=== PATIENT | male | born 1960 | race African-American/Black ===

== ENCOUNTER 2018-04-25 00:22 | Inpatient (IN) | payer MEDICARE, MEDICAID ==
[~2018-04-25] VITALS: Ht 180.3 cm; Wt 113.4 kg
--- NOTE | 2018-04-25 00:27 | ER Report ---
History and Physical Time Seen By MD: 00:27 HPI/ROS CHIEF COMPLAINT: Fever HISTORY OF PRESENT ILLNESS: Patient is a 58-year-old male who presents to the emergency department for evaluation of fever, cough bodyaches. Patient recently had surgery to his left foot by Dr. Dimas on April 21. This procedure was done at [facility]. Surgery apparently went well however patient did have some issues with recovery from anesthesia. He had elevated blood pressures stating that they were in the 200s systolic range and severe nausea. This was monitored and treated and apparently the patient was eventually discharged to home. evening around 5 PM the patient began having difficulty with speech, left-sided facial droop left facial and arm numbness and some weakness. These episodes would occur in the last for a few min utes and then completely resolve. This reason patient presented to [facility] for further evaluation. Patient and spouse stated he had multiple episodes of facial droop, left facial numbness left arm numbness and weakness over the course of a few hours and one was witnessed by the telestroke neurologist. The patient states they did a workup which did include blood work and patient was reported to have an elevated white blood cell count., Influenza screen which was reported to be negative. CT scan of the head was "negative". The patient was subsequently admitted for diagnosis of TIA. The following morning he had an MRI of the brain which was also reported to be "negative". During his hospital stay on Friday the patient apparently spiked a fever to 103 which did not respond to Tylenol. The admitting team apparently wanted to give ibuprofen but he refused stating that the neurologist from [facility] said "absolutely no ibuprofen because of the TIA." They then pparently used ice packs instead to try to lower the fever and the patient feels this is the reason he became "sick". He was scheduled to have a cardiac echo done however the patient became upset that "the doctors were not doing anything for him" and he left against medical advice without signing an AMA form. Because the patient's symptoms have continued he presents to the emergency department for further evaluation. Of note the patient was on IV Zithromax during his hospital admission. It was unclear to the patient what they were treating. Currently the patient states he's having headaches bodyaches, fever, nonproductive cough. He denies chills. He denies any back pain. He denies pain to his surgical site. He does report chest pain and palpitations which she also apparently had at [facility] and apparently his cardiac workup was "negative". He denies abdominal pain but reports nausea and a sensation of needing to vomit without actually vomiting. He also reports left-sided facial pressure. REVIEW OF SYSTEMS: Constitutional: Fever, no chills Eyes: No discharge. ENT: No sore throat. Sided facial pressure Cardiovascular: Chest pain/burning, palpitations Respiratory: Nonproductive cough increased work of breathing Gastrointestinal: No abdominal pain, no vomiting. Positive for nausea Genitourinary: No hematuria. Musculoskeletal: No back pain. Surgical site left foot negative for pain Skin: No rashes. Neurological: Headache Allergies: Coded Allergies: codeine (Verified Allergy, Intermediate, SWELLING, 04/25/18) morphine (Verified Allergy, Intermediate, SWELLING, 04/25/18) Past Medical/Surgical History Recent left foot surgery. History of reactive airways disease, denies prior history of stroke although was diagnosed with TIA on 04/23/2018. No cardiac history. Constitutional Vital Sign - Last 24 Hours 04/25/18 04/25/18 04/25/18 04/25/18 00:27 00:27 00:30 00:30 Temp 103.3 Pulse 119 Resp 17 B/P (MAP) 169/93 169/93 (118) 156/97 (116) Pulse Ox 76 O2 Delivery Room Air O2 Flow Rate 4.0 04/25/18 04/25/18 04/25/18 04/25/18 00:37 00:45 01:00 01:07 Pulse 115 110 Resp 22 34 B/P (MAP) 159/94 (115) 152/93 (112) Pulse Ox 96 94 04/25/18 04/25/18 04/25/18 04/25/18 01:18 01:18 01:22 01:22 Pulse 110 108 108 Resp 16 16 11 Pulse Ox 95 O2 Delivery Nasal Cannula O2 Flow Rate 2.0 04/25/18 04/25/18 04/25/18 04/25/18 01:37 01:42 02:00 02:12 Pulse 111 111 108 Resp 31 12 B/P (MAP) 140/80 (100) Pulse Ox 93 95 104/25/18 04/25/18 04/25/18 02:30 02:30 02:30 02:34 Temp 101.8 Pulse 108 108 Resp 20 16 B/P (MAP) 133/76 (95) Pulse Ox 93 O2 Delivery Nasal Cannula O2 Flow Rate 3.0 Physical Exam General/Constitutional: Patient is awake, alert, nontoxic and in no acute respiratory distress. Normal speech Head: Normocephalic and atraumatic. Eyes: Conjunctival clear, Pupils are equal and reactive to light. Extraocular muscles are intact and symmetrical. Sclera are clear and anicteric. Ears:External canals are clear. Tympanic membranes are clear with normal landmarks and light reflex. Nares: No rhinorrhea or bleeding. Turbinates are pink and moist. Oropharyngeal: Mucous membranes are moist. There is no pharyngeal erythema or exudate. There are no palatal petechiae. Uvula is midline and symmetrical. Neck: Supple, no adenopathy. Cardiovascular: Heart is tachycardic with regular rate and rhythm Pulmonary: Lungs are noted for bilateral wheezing right greater than left. Abdomen: Soft, nontender, no guarding or peritoneal signs. Extremities: Patient with surgical incision to left foot. Dressing and splint are removed for evaluation. Incision appears clean dry and intact there is no surrounding erythema no evidence of fluctuant mass or dehiscence. Neuro: Alert and oriented X3, Cranial nerves 2 thru 12 are intact and symmetrical. Gross motor strength symmetrical and intact. No dysarthria no aphasia noted Skin: No rashes, skin is hot to touch. Medical Decision Making Data Points Result Diagram: 04/25/18 0032 04/25/18 0032 Laboratory Hematology Test 04/25/18 00:32 04/25/18 01:05 04/25/18 01:30 Red Blood Count 5.94 M/uL (4.00-5.60) Mean Corpuscular Volume 64.3 fL (80.0-96.0) Mean Corpuscular Hemoglobin 19.2 pg (26.0-33.0) Mean Corpuscular Hemoglobin Concent 29.9 g/dL (32.0-36.0) Red Cell Distribution Width 22.6 % (11.5-14.5) Mean Platelet Volume 8.9 fL (7.2-11.1) Neutrophils (%) (Auto) 79.8 % (39.4-72.5) Lymphocytes (%) (Auto) 7.9 % (17.6-49.6) Monocytes (%) (Auto) 11.4 % (4.1-12.4) Eosinophils (%) (Auto) 0.3 % (0.4-6.7) Basophils (%) (Auto) 0.6 % (0.3-1.4) Nucleated RBC Relative Count (auto) 0.3 /100WBC Neutrophils # (Auto) 8.5 K/uL (2.0-7.4) Lymphocytes # (Auto) 0.8 K/uL (1.3-3.6) Monocytes # (Auto) 1.2 K/uL (0.3-1.0) Eosinophils # (Auto) 0.0 K/uL (0.0-0.5) Basophils # (Auto) 0.1 K/uL (0.0-0.1) Nucleated RBC Absolute Count (auto) 0.03 K/uL Peripheral Blood Smear Yes Y/N Sodium Level 137 mmol/L (137-145) Potassium Level 3.7 mmol/L (3.5-5.0) Chloride Level 102 mmol/L (98-107) Carbon Dioxide Level 25 mmol/L (22-30) Blood Urea Nitrogen 16 mg/dl (9-21) Creatinine 1.30 mg/dl (0.66-1.25) Glomerular Filtration Rate Calc 56.7 Random Glucose 114 mg/dl (75-110) Lactate 2.0 mmol/L (0.7-2.1) Calcium Level 9.1 mg/dl (8.4-10.2) Total Bilirubin 0.6 mg/dl (0.2-1.3) Aspartate Amino Transf (AST/SGOT) 37 U/L (0-35) Alanine Aminotransferase (ALT/SGPT) 41 U/L (0-56) Alkaline Phosphatase 81 U/L (0-126) Troponin I 0.028 ng/ml Total Protein 7.6 g/dl (6.3-8.2) Albumin 3.9 g/dl (3.5-5.0) Influenza Virus Type A (PCR) Positive (NEGATIVE) Influenza Virus Type B (PCR) Negative (NEGATIVE) Urine Color Yellow Urine Clarity Clear Urine pH 5.0 pH (4.8-9.5) Urine Specific [place] 1.024 Urine Protein Negative mg/dL (NEGATIVE) Urine Glucose (UA) Negative mg/dL (NEGATIVE) Urine Ketones Negative mg/dL (NEGATIVE) Urine Blood Negative (NEGATIVE) Urine Nitrite Negative (NEGATIVE) Urine Bilirubin Negative (NEGATIVE) Urine Urobilinogen Negative mg/dL (0.2-1.9) Urine Leukocyte Esterase Negative (NEGATIVE) Urine RBC <1 /HPF (0-2/HPF) Urine WBC 1 /HPF (0-5/HPF) Urine Squamous Epithelial Cells None /LPF (</=FEW) Urine Bacteria Negative /HPF (NONE-FEW) Urine Mucus None /HPF (NONE-FEW) Chemistry Test 04/25/18 00:32 04/25/18 01:05 04/25/18 01:30 White Blood Count 10.7 k/uL (4.5-11.0) Red Blood Count 5.94 M/uL (4.00-5.60) Hemoglobin 11.4 g/dL (14.0-18.0) Hematocrit 38.2 % (42.0-52.0) Mean Corpuscular Volume 64.3 fL (80.0-96.0) Mean Corpuscular Hemoglobin 19.2 pg (26.0-33.0) Mean Corpuscular Hemoglobin Concent 29.9 g/dL (32.0-36.0) Red Cell Distribution Width 22.6 % (11.5-14.5) Platelet Count 275 K/uL (150-450) Mean Platelet Volume 8.9 fL (7.2-11.1) Neutrophils (%) (Auto) 79.8 % (39.4-72.5) Lymphocytes (%) (Auto) 7.9 % (17.6-49.6) Monocytes (%) (Auto) 11.4 % (4.1-12.4) Eosinophils (%) (Auto) 0.3 % (0.4-6.7) Basophils (%) (Auto) 0.6 % (0.3-1.4) Nucleated RBC Relative Count (auto) 0.3 /100WBC Neutrophils # (Auto) 8.5 K/uL (2.0-7.4) Lymphocytes # (Auto) 0.8 K/uL (1.3-3.6) Monocytes # (Auto) 1.2 K/uL (0.3-1.0) Eosinophils # (Auto) 0.0 K/uL (0.0-0.5) Basophils # (Auto) 0.1 K/uL (0.0-0.1) Nucleated RBC Absolute Count (auto) 0.03 K/uL Peripheral Blood Smear Yes Y/N Glomerular Filtration Rate Calc 56.7 Lactate 2.0 mmol/L (0.7-2.1) Calcium Level 9.1 mg/dl (8.4-10.2) Total Bilirubin 0.6 mg/dl (0.2-1.3) Aspartate Amino Transf (AST/SGOT) 37 U/L (0-35) Alanine Aminotransferase (ALT/SGPT) 41 U/L (0-56) Alkaline Phosphatase 81 U/L (0-126) Troponin I 0.028 ng/ml Total Protein 7.6 g/dl (6.3-8.2) Albumin 3.9 g/dl (3.5-5.0) Influenza Virus Type A (PCR) Positive (NEGATIVE) Influenza Virus Type B (PCR) Negative (NEGATIVE) Urine Color Yellow Urine Clarity Clear Urine pH 5.0 pH (4.8-9.5) Urine Specific [place] 1.024 Urine Protein Negative mg/dL (NEGATIVE) Urine Glucose (UA) Negative mg/dL (NEGATIVE) Urine Ketones Negative mg/dL (NEGATIVE) Urine Blood Negative (NEGATIVE) Urine Nitrite Negative (NEGATIVE) Urine Bilirubin Negative (NEGATIVE) Urine Urobilinogen Negative mg/dL (0.2-1.9) Urine Leukocyte Esterase Negative (NEGATIVE) Urine RBC <1 /HPF (0-2/HPF) Urine WBC 1 /HPF (0-5/HPF) Urine Squamous Epithelial Cells None /LPF (</=FEW) Urine Bacteria Negative /HPF (NONE-FEW) Urine Mucus None /HPF (NONE-FEW) Urinalysis Test 04/25/18 01:30 Urine Color Yellow Urine Clarity Clear Urine pH 5.0 pH (4.8-9.5) Urine Specific [place] 1.024 Urine Protein Negative mg/dL (NEGATIVE) Urine Glucose (UA) Negative mg/dL (NEGATIVE) Urine Ketones Negative mg/dL (NEGATIVE) Urine Blood Negative (NEGATIVE) Urine Nitrite Negative (NEGATIVE) Urine Bilirubin Negative (NEGATIVE) Urine Urobilinogen Negative mg/dL (0.2-1.9) Urine Leukocyte Esterase Negative (NEGATIVE) Urine RBC <1 /HPF (0-2/HPF) Urine WBC 1 /HPF (0-5/HPF) Urine Squamous Epithelial Cells None /LPF (</=FEW) Urine Bacteria Negative /HPF (NONE-FEW) Urine Mucus None /HPF (NONE-FEW) EKG/Imaging EKG Interpretation EKG shows sinus tachycardia with a ventricular rate of 112 bpm. There are no significant ST segment or T-wave abnormalities. There is no prior EKG to compare with. Monitor Interpretation: Sinus Tachycardia Imaging FACILITY: [facility] [place] PATIENT NAME: Michael Ramirez : 1960 MR: [id number] V: [id number] EXAM DATE: ORDERING PHYSICIAN: SUHAS HA TECHNOLOGIST: Location: Patient: Michael Ramirez : 1960 Visit/Account:[id number] Date of Sevice: 04/25/[address] scan without contrast HISTORY: Fever, nausea, recent TIA COMPARISONS: None TECHNIQUE: Non-contrast head CT was performed with sagittal and coronal reformations. One of the following dose optimization techniques was utilized in the performance of this exam: automated exposure control; adjustment of the mA and/or kV according to patient size; or use of iterative reconstruction technique. Specific details can be referenced in the facility's radiology CT exam operational policy. FINDINGS: There is no intracranial hemorrhage, hydrocephalus or midline shift. The basal cisterns, corrales-white differentiation, and convexity sulci are maintained. Normal orbital soft tissues. Equivocal tiny chronic right cerebellar infarct, axial image 21. Clear mastoid air cells. Mild maxillary sinus and ethmoid sinus mucosal thickening. No osseous abnormality. IMPRESSION: No acute intracranial abnormality. Equivocal tiny chronic right cerebellar infarct. Report Dictated By: Darien Baltazar MD at 04/25/2018 2:22 AM Report E-Signed By: Darien Baltazar MD at 04/25/2018 2:25 AM WSN:[id number] FACILITY: [facility] [place] PATIENT NAME: Michael Ramirez : 1960 MR: [id number] V: [id number] EXAM DATE: ORDERING PHYSICIAN: SUHAS HA TECHNOLOGIST: Location: Patient: Michael Ramirez : 1960 Visit/Account:[id number] Date of Sevice: 04/25/2018 EXAMINATION: CT of the Paranasal Sinuses HISTORY: Fever TECHNIQUE: CT was performed through the paranasal sinuses without intravenous contrast administration. Coronal and sagittal reformatted images were generated. One of the following dose optimization techniques was utilized in the performance of this exam: automated exposure control; adjustment of the mA and/or kV according to patient size; or use of iterative reconstruction technique. Specific details can be referenced in the facility's radiology CT exam operational policy. COMPARISON: None. FINDINGS: Clear mastoid air cells and middle ear cavities. Mild bilateral maxillary sinus and ethmoid sinus mucosal thickening. Trace right maxillary sinus secretions. Otherwise clear sinuses. No nasal cavity polyp. Mild leftward nasal septum deviation. Infundibula are partially effaced by mucosal thickening. Small left nasal septum spur contacts the mucosa of the left inferior turbinate. Normal temporomandibular joints. The visible extracranial and intracranial structures are normal. IMPRESSION: Mild bilateral maxillary sinus and ethmoid sinus mucosal thickening and trace right maxillary sinus secretions. Developing acute sinusitis cannot be entirely excluded. Mild leftward nasal septum deviation. Small nasal septum spur contacts the mucosa of the left inferior turbinate. Report Dictated By: Darien Baltazar MD at 04/25/2018 2:25 AM Report E-Signed By: Darien Baltazar MD at 04/25/2018 2:29 AM WSN:[id number] FACILITY: [facility] [place] PATIENT NAME: Michael Ramirez : 1960 MR: [id number] V: [id number] EXAM DATE: ORDERING PHYSICIAN: SUHAS HA TECHNOLOGIST: Location: Patient: Michael Ramirez : 1960 Visit/Account:[id number] Date of Sevice: 04/25/2018 CHEST: Indication: Fever. Technique: Frontal and lateral views were obtained. Comparison: None available. Skeletal and soft tissue structures: There are mild degenerative changes in the spine. No acute deformity. Heart and mediastinum: Within normal limits. Lung lozada: Well-expanded. No focal parenchymal opacity or consolidation. Pleural spaces: Unremarkable. Impression: No acute process. Report Dictated By: Johnny Brock MD at 04/25/2018 2:15 AM Report E-Signed By: Johnny Brock MD at 04/25/2018 2:17 AM WSN:[id number] ED Course/Re-evaluation Clinical Indication for ER IV: Hydration, IV Access ED Course Patient with febrile illness. Physical exam shows low oxygen saturation on room air at 76%, patient with audible wheezing on exam. Suspicion for pneumonia is high. We will repeat a cardiac workup we will repeat a noncontrast CT of the head along with the sinuses secondary to left maxillary facial pain. EKG shows tachycardia without any significant ischemic changes. We will perform sepsis workup, we will give her 30 mL/kg bolus of normal saline. We will give oral Tylenol. We'll give DuoNeb breathing treatment. Decision to Disposition Date: Apr 25, 2018 Decision to Disposition Time: 02:51 Depart Departure Latest Vital Signs Vital Signs Date Time Temp Pulse Resp B/P (MAP) Pulse Ox O2 Delivery O2 Flow Rate FiO2 04/25/18 02:34 108 16 04/25/18 02:30 101.8 133/76 (95) 04/25/18 02:30 93 Nasal Cannula 3.0 Impression: Primary Impression: Influenza A Additional Impressions: Hypoxia Asthma Condition: Improved Disposition: Admitted from ER (to dr Neumann) Problem Qualifiers Additional Impressions: Asthma Asthma severity: unspecified severity Asthma persistence: unspecified Asthma complication type: with acute exacerbation Qualified Codes: J45.901 - Unspecified asthma with (acute) exacerbation SUHAS HA MD Apr 25, 2018 00:27
[2018-04-25] MEDS ORDERED: ACETAMINOPHEN 325 MG TAB PO ONE (00:30)
[2018-04-25] MEDS: NS 0.9% IV ONE (00:45)
[2018-04-25] MEDS ORDERED: ALBUTEROL/IPRATROPIUM 3 ML NEB NEB ONE ×2 (01:05→02:20)
[2018-04-25] MEDS ORDERED: ONDANSETRON 4 MG/2 ML VIAL IVP ONE (01:05)
[2018-04-25 01:10] LABS: PLATELET COUNT, AUTOMATED 275 K/uL (150-450)
--- NOTE | 2018-04-25 01:31 | EKG ---
FACILITY: [facility] PATIENT NAME: ABHINAV MENDEZ : [id number] MR: [id number] V: [id number] EXAM DATE: ORDERING PHYSICIAN: SUHAS HA TECHNOLOGIST: NANDA Test Reason : FEVER Blood Pressure : / mmHG Vent. Rate : 112 BPM Atrial Rate : 112 BPM P-R Int : 136 ms QRS Dur : 090 ms QT Int : 316 ms P-R-T Axes : 050 -02 060 degrees QTc Int : 431 ms Sinus tachycardia R wave progression consistent with an old ant/sep SD vs lead placement No previous ECGs available Confirmed by ABEL NARAYAN ([id number]) on 04/25/2018 3:58:37 AM Referred By: Confirmed By:ABEL NARAYAN
[2018-04-25] MEDS ORDERED: OSELTAMIVIR PHOS 75 MG CAP PO ONE (02:15)
--- NOTE | 2018-04-25 02:21 | RADIOLOGY IMAGING REPORT ---
FACILITY: [facility] PATIENT NAME: Michael Ramirez : 1960 MR: [id number] V: [id number] EXAM DATE: ORDERING PHYSICIAN: SUHAS HA TECHNOLOGIST: Location: [facility] Patient: Michael Ramirez : 1960 Visit/Account:[id number] Date of Sevice: 04/25/2018 CHEST: Indication: Fever. Technique: Frontal and lateral views were obtained. Comparison: None available. Skeletal and soft tissue structures: There are mild degenerative changes in the spine. No acute defor mity. Heart and mediastinum: Within normal limits. Lung lozada: Well-expanded. No focal parenchymal opacity or consolidation. Pleural spaces: Unremarkable. Impression: No acute process. Report Dictated By: Johnny Brock MD at 04/25/2018 2:15 AM Report E-Signed By: Johnny Brock MD at 04/25/2018 2:17 AM WSN:[id number]
--- NOTE | 2018-04-25 02:31 | RADIOLOGY IMAGING REPORT ---
FACILITY: [facility] [place] PATIENT NAME: Michael Ramirez : 1960 MR: [id number] V: [id number] EXAM DATE: ORDERING PHYSICIAN: SUHAS HA TECHNOLOGIST: Location: [facility] [place], [place] Patient: Michael Ramirez : 1960 Visit/Account:[id number] Date of Sevice: 04/25/[address] scan without contrast HISTORY: Fever, nausea, recent TIA COMPARISONS: None TECHNIQUE: Non-contrast head CT was performed with sagittal and coronal reformations. One of the following dose optimization techniques was utilized in the performance of this exam: autom ated exposure control; adjustment of the mA and/or kV according to patient size; or use of iterative reconstruction technique. Specific details can be referenced in the facility's radiology CT exam ope rational policy. FINDINGS: There is no intracranial hemorrhage, hydrocephalus or midline shift. The basal cisterns, corrales-white differentiation, and convexity sulci are maintained. Normal orbital soft tissues. Equivocal tiny chrome polisher brian right cerebellar infarct, axial image 21. Clear mastoid air cells. Mild maxillary sinus and ethmoid sinus mucosal thickening. No osseous abnorm ality. IMPRESSION: No acute intracranial abnormality. Equivocal tiny chronic right cerebellar infarct. Report Dictated By: Darien Baltazar MD at 04/25/2018 2:22 AM Report E-Signed By: Darien Baltazar MD at 04/25/2018 2:25 AM WSN:[id number]
--- NOTE | 2018-04-25 02:33 | RADIOLOGY IMAGING REPORT ---
FACILITY: [facility] [place] PATIENT NAME: Michael Ramirez : 1960 MR: [id number] V: [id number] EXAM DATE: ORDERING PHYSICIAN: SUHAS HA TECHNOLOGIST: Location: [facility] [place] Patient: Michael Ramirez : 1960 Visit/Account:[id number] Date of Sevice: 04/25/2018 EXAMINATION: CT of the Paranasal Sinuses HISTORY: Fever TECHNIQUE: CT was performed through the paranasal sinuses without intravenous contrast administratio n. Coronal and sagittal reformatted images were generated. One of the following dose optimization techniques was utilized in the performance of this exam: autom ated exposure control; adjustment of the mA and/or kV according to patient size; or use of iterative reconstruction technique. Specific details can be referenced in the facility's radiology CT exam ope rational policy. COMPARISON: None. FINDINGS: Clear mastoid air cells and middle ear cavities. Mild bilateral maxillary sinus and ethmoid sinus muc osal thickening. Trace right maxillary sinus secretions. Otherwise clear sinuses. No nasal cavity randal yp. Mild leftward nasal septum deviation. Infundibula are partially effaced by mucosal thickening. Sm all left nasal septum spur contacts the mucosa of the left inferior turbinate. Normal temporomandibul ar joints. The visible extracranial and intracranial structures are normal. IMPRESSION: Mild bilateral maxillary sinus and ethmoid sinus mucosal thickening and trace right maxillary sinus s ecretions. Developing acute sinusitis cannot be entirely excluded. Mild leftward nasal septum deviation. Small nasal septum spur contacts the mucosa of the left inferio r turbinate. Report Dictated By: Darien Baltazar MD at 04/25/2018 2:25 AM Report E-Signed By: Darien Baltazar MD at 04/25/2018 2:29 AM WSN:[id number]
[2018-04-25] MEDS ORDERED: ALBUTEROL 2.5 MG/3 ML NEB NEB PRN (03:35)
[2018-04-25] MEDS ORDERED: methylPREDNIS SUCC 125 MG/2ML IVP ONE (03:35)
[2018-04-25] MEDS ORDERED: ACETAMINOPHEN 500 MG TAB PO PRN (03:35)
[2018-04-25 03:47] VITALS: BP 138/80
[2018-04-25] MEDS ORDERED: GUAIFENESIN/DEXTROMETHORPHAN 5 ML PO PRN (03:50)
[2018-04-25] MEDS ORDERED: BENZONATATE 100 MG CAP PO PRN (03:50)
--- NOTE | 2018-04-25 04:08 | History & Physical ---
History of Present Illness History of Present Illness 58yo male with a possible h/o asthma, recent left foot surgery and recent stroke/TIA who came to the ER for cough and fever. 5 days ago (04/22), he developed a mild cough. 4 days ago (04/21), he had left foot and ankle surgery and PB and J by Dr. Harris. He had a delayed recovery and a SBP to 200's, but was eventually able to discharge. 2 days ago, he had sudden onset of left facial droop/numbness and left arm numbness. He went to [facility] and was admitted. Yesterday, he started getting fevers. He was told to not use ibuprofen secondary to the recent stroke/TIA by the telemedicine neurologist, but the [facility] team wanted to use it. He got angry and left AMA. He reports continued left facial numbness. He came to [facility] because of continued cough and fever. He has also had nausea. In the ER, he received 3 liters of IVF, a DuoNebx2 without much relief, Tamiflu, Zofran and Tylenol History Problems: (1) Hx of foot surgery Status: Acute (2) Asthma Status: Acute Home Meds Unable to Obtain Active Prescriptions or Reported Meds Allergies: Coded Allergies: codeine (Verified Allergy, Intermediate, SWELLING, 04/25/18) morphine (Verified Allergy, Intermediate, SWELLING, 04/25/18) Other Social/Family Hx He lives in [place]. He smoked about 2 cigars a day for 8months, but quit a few years ago. 2-3 beers a day. Review of Systems All Systems Reviewed/Normal: Yes, Except as Noted Exam Vital Signs Vital Signs Date Time Temp Pulse Resp B/P (MAP) Pulse Ox O2 Delivery O2 Flow Rate FiO2 04/25/18 02:34 108 16 04/25/18 02:30 101.8 133/76 (95) 04/25/18 02:30 93 Nasal Cannula 3.0 General Appearance: Alert, Awake, No Acute Distress Neuro: Other (No facial droop. Moves all extremities) Cardiovascular: Regular Rate and Rhythm Respiratory: Other (With shallow breathing he has clear lungs but develops much coughing with deep breathing) Extremities: No Edema Integumentary: Other (No erythema around bandage on the left foot. See ER physician note) Medical Decision Making Data Points Result Diagram: 04/25/183104/25/1831 Item Value Date Time Mean Corpuscular Volume 64.3 fL L 04/25/1831 Neutrophils (%) (Auto) 79.8 % H 04/25/1831 Platelet Count 275 K/uL 04/25/1831 Lactate 2.0 mmol/L 04/25/1831 Troponin I 0.028 ng/ml 04/25/1831 Calcium Level 9.1 mg/dl 04/25/1831 Total Bilirubin 0.6 mg/dl 04/25/1831 Aspartate Amino Transf (AST/SGOT) 37 U/L H 04/25/1831 Alanine Aminotransferase (ALT/SGPT) 41 U/L 04/25/1831 Alkaline Phosphatase 81 U/L 04/25/1831 Urine Leukocyte Esterase Negative 04/25/18129 Urine RBC <1 /HPF 04/25/18129 Urine WBC 1 /HPF 04/25/18129 Urine Squamous Epithelial Cells None /LPF 04/25/18129 Influenza Virus Type A (PCR) Positive 04/25/18104 Influenza Virus Type B (PCR) Negative 04/25/18104 EKG / Imaging EKG Interpretation Sinus tachy to 112bpm, poor r wave progression c/w old ant/sep [place] vs lead placement, no ST-T abnormalities Imaging CXR - No acute process. Head CT - No acute intracranial abnormality. Equivocal tiny chronic right cerebellar infarct. Sinus CT - Mild bilateral maxillary sinus and ethmoid sinus mucosal thickening and trace right maxillary sinus secretions. Developing acute sinusitis cannot be entirely excluded. Mild leftward nasal septum deviation. Small nasal septum spur contacts the mucosa of the left inferior turbinate. Assessment and Plan Problems: (1) Influenza A Status: Acute Assessment & Plan: He presented with a cough for 5 days and fevers for about 24 hours. He is influenza A positive and hypoxic. He was started on Tamiflu in the ER and it will be continued. He might have received azithromycin while at [facility]. CXR without focal infiltrate here and a CTA of the chest at [facility] did not report infiltrate. (2) Asthma Status: Acute Assessment & Plan: He is wheezy and hypoxic. Will give scheduled DuoNeb, albuterol prn and a give a dose of methylprednisolone. Will start Prednisone 20mg a day later today, but with recent surgery, he should only be on a short course. (3) Hypoxia Status: Acute Assessment & Plan: See above. (4) Hx of foot surgery Status: Acute Assessment & Plan: He had left foot and ankle surgery on 04/[address] Harris. The wound is intact and without evidence of infection per the ER physician. New wraps had been placed by the ER staff, so it wasn't disturbed again by me. (5) History of TIA (transient ischemic attack) Status: Acute Assessment & Plan: He had left facial droop/numbness and left arm numbness on 04/23. He had a negative MRI of the brain, MRA of the head and neck and CTA of the head and neck. He left [facility] AMA, so he doesn't know his follow up instructions. Will give ASA 81mg for now. Trying to records from [facility]. (6) Microcytic anemia Status: Chronic Assessment & Plan: He had a low iron at 22, normal TIBC at 434 and normal transferrin at 311 at [facility]. He had a colonoscopy with polyps 2003, but has had a repeat. Will check for occult blood in stools, but he needs a follow colonoscopy. Copies to: ANNIE HARRIS MD ; Venous Thromboembolism Antithrombotics Is Pt On Any Antithrombotics?: No Exam Sepsis Risk: Possible Sepsis Risk Problem Qualifiers (1) Asthma: Asthma severity: unspecified severity Asthma persistence: unspecified Asthma complication type: with acute exacerbation Qualified Codes: J45.901 - U nspecified asthma with (acute) exacerbation ABEL NARAYAN MD Apr 25, 2018 04:08
[2018-04-25] MEDS ORDERED: NS(*) 0.9% 250 ML BAG 250 ML ONE (04:12)
[2018-04-25] MEDS: PROMETHAZINE 25 MG/ML 1 ML AMP IVP PRN ×2 (04:18→19:40)
[2018-04-25] MEDS ORDERED: NAPR-1043 PO (04:33)
[2018-04-25] MEDS ORDERED: ALBU2.5V36 INH (04:34)
[2018-04-25] MEDS: ALBUTEROL/IPRATROPIUM 3 ML NEB NEB SCH ×4 (05:20→17:26)
[2018-04-25] MEDS ORDERED: ENOXAPARIN 40 MG/0.4ML SYR SC SCH (09:00)
[2018-04-25 09:32] VITALS: BP 148/74
[2018-04-25] MEDS: ASPIRIN 81 MG ENTERIC COATED PO SCH (09:35)
[2018-04-25] MEDS: guaiFENesin 600 MG TABCR PO SCH ×2 (09:35→19:39)
[2018-04-25] MEDS: predniSONE 20 MG TAB PO SCH (09:35)
[2018-04-25 10:16] VITALS: Ht 180.3 cm; Wt 113.4 kg
[2018-04-25] MEDS: OSELTAMIVIR PHOS 75 MG CAP PO SCH ×2 (11:29→23:03)
[2018-04-25 13:36] VITALS: BP 122/68
--- NOTE | 2018-04-25 13:50 | Miscellaneous Provider Note ---
Miscellaneous Provider Note Note The patient was rechecked after Dr. Neumann admitted him early this am. No new complaints. Fever improved. The patient still feels short of breath. Reviewed records from [facility]. Work up there including MRI/MRA of brain, CTA of neck and echo were all negative. The [facility] team neurologist had recommended starting ASA. We have started the patient on a low dose ASA daily here. Will continue to monitor closely. ROB FRANCE MD Apr 25, 2018 13:50
[2018-04-25 15:56] VITALS: BP 134/73
[2018-04-25 19:59] VITALS: BP 135/80
[2018-04-25 23:04] VITALS: BP 133/75
[2018-04-26] MEDS: ALBUTEROL/IPRATROPIUM 3 ML NEB NEB SCH ×3 (05:29→13:29)
[2018-04-26 06:21] LABS: PLATELET COUNT, AUTOMATED 278 K/uL (150-450)
[2018-04-26 06:52] VITALS: BP 154/83
[2018-04-26] MEDS: ASPIRIN 81 MG ENTERIC COATED PO SCH (08:52)
[2018-04-26] MEDS: guaiFENesin 600 MG TABCR PO SCH (08:52)
[2018-04-26] MEDS: predniSONE 20 MG TAB PO SCH (08:52)
[2018-04-26] MEDS ORDERED: ASPI81TA86 PO (10:34)
[2018-04-26] MEDS ORDERED: OSE75 PO (10:34)
[2018-04-26] MEDS ORDERED: PROM-110 PO (10:34)
[2018-04-26] MEDS ORDERED: PRED20TA6 PO (10:34)
[2018-04-26] MEDS: OSELTAMIVIR PHOS 75 MG CAP PO SCH (11:47)
[2018-04-26 11:48] VITALS: BP 158/93
--- NOTE | 2018-04-26 12:58 | Hospitalist Depart ---
Discharge Summary Reason for Hosp/Final Diag: (1) Influenza A Status: Acute Hospital Course & Plan: He presented with a cough for 5 days and fevers for about 24 hours. He is influenza A positive and hypoxic. He was started on Tamiflu in the ER and it will be continued. He might have received azithromycin while at [facility]. CXR without focal infiltrate here and a CTA of the chest at [facility] did not report infiltrate. Continue Tamiflu for total duration 5 days, will also include 3 more days steroid given history of asthma. On RA at discharge. (2) Asthma Status: Acute Hospital Course & Plan: He was wheezy and hypoxic. Scheduled DuoNeb, albuterol prn a dose of methylprednisolone as inpatient. Prednisone 20mg through 04.29.18. (3) History of TIA (transient ischemic attack) Status: Acute Hospital Course & Plan: He had left facial droop/numbness and left arm numbness on 04/23. He had a negative MRI of the brain, MRA of the head and neck and CTA of the head and neck. He left [facility] AMA, so he doesn't know his follow up instructions. Begin 81mg ASA. (4) Microcytic anemia Status: Chronic Hospital Course & Plan: He had a low iron at 22, normal TIBC at 434 and normal transferrin at 311 at [facility]. He had a colonoscopy with polyps 2003, but has had a repeat. Recommend a repeat colonoscopy as it is due and to evaluate anemia. (5) Hypoxia Status: Acute Hospital Course & Plan: See above. (6) Hx of foot surgery Status: Acute Hospital Course & Plan: He had left foot and ankle surgery on 04/[address] Dimas. The wound is intact and without evidence of infection per the ER physician. Departure Weight (Pounds): 250 Result Diagram: 04/26/1851604/26/18516 Condition: Improved Discharge Instructions Home Meds Active Scripts Promethazine Hcl (PROMETHAZINE HCL) 25 Mg Tablet, 12.5 MG PO Q8H for Nausea for 7 Days, #10 TAB Prov:PATRICIA BEACH DO 04/26/18 Prednisone (PREDNISONE) 20 Mg Tablet, 20 MG PO QDAY for 3 Days, #3 TAB Prov:PATRICIA BEACH DO 04/26/18 Oseltamivir Phosphate (TAMIFLU) 75 Mg Cap, 75 MG PO Q12H@1100,2300 for 3 Days, #6 CAP Prov:PATRICIA BEACH DO 04/26/18 Aspirin (ASPIRIN EC) 81 Mg Tablet.dr, 81 MG PO QDAY for 30 Days, TAB Prov:PATRICIA BEACH DO 04/26/18 Reported Medications Albuterol Sulfate 0.083% (ALBUTEROL SULFATE 0.083%) 2.5 Mg/3 Ml Vial.neb, 2.5 MG INH, INH 04/25/18 Naproxen Sodium (ALEVE) 220 Mg Tablet, 220 MG PO TID, TAB 04/25/18 Special Instructions: Please establish with PCP. Recommend colonoscopy for screening and to evaluate microcytic anemia. Take Tamiflu as prescribed as well as prednisone for 3 more days. Venous Thromboembolism Antithrombotics Is Pt On Any Antithrombotics?: No Problem Qualifiers (1) Asthma: Asthma severity: unspecified severity Asthma persistence: unspecified Asthma complication type: with acute exacerbation Qualified Codes: J45.901 - Unspecified asthma with (acute) exacerbation WOMACK KEVON ABREUVITALIY MULLEN Apr 26, 2018 12:58
[2018-04-26] MEDS ORDERED: ALBU8.5H IH (14:06)
== END 2018-04-26 14:33 | disposition home or self-care (01) | DRG 194 ==
LOC: ER 00:45 → MED 02:55
PROVIDERS: ADMIT Internal Medicine; ATTEND Internal Medicine
DX: J09.X2 Influenza due to identified novel influenza A virus with other respiratory manifestations (principal); J45.901 Unspecified asthma with (acute) exacerbation; R09.02 Hypoxemia; I69.392 Facial weakness following cerebral infarction; Z88.5 Allergy status to narcotic agent; D50.9 Iron deficiency anemia, unspecified; Z88.8 Allergy status to other drugs, medicaments and biological substances
CPT/HCPCS: 36415; 70450; 70486; 71046; 81001; 82040; 82247; 82310; 82374; 82435; 82565; 82947; 83605; 84075; 84132; 84155; 84295; 84450; 84460; 84484; 84520; 85025; 87040; 87088; 87502; 93005; 94640; 96361; 96374; 99285; J2405; J2550; J2930; J7030; J7512

== ENCOUNTER 2018-08-22 18:41 | Inpatient (IN) | payer MEDICARE, MEDICAID ==
[~2018-08-22] VITALS: Ht 180.3 cm; Wt 109.9 kg
[~2018-08-22 18:41] MED LIST: ALBU2.5V36 INH; ALBU8.5H IH; ASPI81TA86 PO; NAPR-1043 PO; OSE75 PO; PRED20TA6 PO; PROM-110 PO
--- NOTE | 2018-08-22 19:15 | ER Report ---
History and Physical Time Seen By MD: 19:14 Hx. of Stated Complaint: PATIENT REPORTS ABDOMINAL BLOATING AND DISTENTION X 3 DAYS. ALSO REPORTS SMALL DARK, TARRY STOOLS HPI/ROS CHIEF COMPLAINT: Abdominal distention/bloating as well as rectal bleeding HISTORY OF PRESENT ILLNESS: This is a 58-year-old male. He has been having some abdominal bloating. Also has been having some black stools although he does take iron supplement. Today has also noted some bright red blood. He felt like the distention might be due to constipation which he has had problems with in the past and took some milk of magnesia and a glycerin suppository which did not help. He is also having some increased problem with internal hemorrhoids that he occasionally needs to push back in. Has had a colonoscopy in the remote past, probably about 20 years ago, where he was diagnosed with some polyps. No colonoscopy since then. He denies any fevers or chills. No trouble with urination and specifically no blood in the urine. No other bleeding such as nosebleeds or bruising. He does use a daily aspirin but no other blood thinners. No shortness of breath or chest pain. Allergies: Coded Allergies: codeine (Verified Allergy, Intermediate, SWELLING, 08/22/18) morphine (Verified Allergy, Intermediate, SWELLING, 08/22/18) Home Meds Active Scripts Albuterol Sulfate 90 Mcg/Act (PROAIR HFA 90 MCG/ACT) 8.5 Gm Hfa.aer.ad, 1-2 PUFF IH 3-4XD for wheezing for 30 Days, #1 INHALER Prov:PATRICIA BEACH DO 04/26/18 Reported Medications Albuterol Sulfate 0.083% (ALBUTEROL SULFATE 0.083%) 2.5 Mg/3 Ml Vial.neb, 2.5 MG INH, INH 04/25/18 Naproxen Sodium (ALEVE) 220 Mg Tablet, 220 MG PO TID, TAB 04/25/18 Discontinued Scripts Promethazine Hcl (PROMETHAZINE HCL) 25 Mg Tablet, 12.5 MG PO Q8H for Nausea for 7 Days, #10 TAB Prov:PATRICIA BEACH DO 04/26/18 Prednisone (PREDNISONE) 20 Mg Tablet, 20 MG PO QDAY for 3 Days, #3 TAB Prov:PATRICIA BEACH DO 1/13/19 Oseltamivir Phosphate (TAMIFLU) 75 Mg Cap, 75 MG PO Q12H@1100,2300 for 3 Days, #6 CAP Prov:PATRICIA BEACH DO 04/26/18 Aspirin (ASPIRIN EC) 81 Mg Tablet.dr, 81 MG PO QDAY for 30 Days, TAB Prov:PATRICIA BEACH DO 04/26/18 Reviewed Nurses Notes: Yes Smoking Status: Former Smoker Exposure to Second Hand Smoke?: No Hx Substance Use Disorder: No Constitutional Vital Sign - Last 24 Hours 08/22/18 08/22/18 08/22/18 08/22/18 18:49 18:50 20:03 20:11 Temp 98.8 Pulse 88 88 Resp 15 B/P (MAP) 156/95 156/95 (115) 133/81 (98) Pulse Ox 98 86 O2 Delivery Room Air 08/22/18 08/22/18 08/22/18 08/22/18 20:30 20:35 21:00 21:05 Pulse 83 84 B/P (MAP) 128/61 (83) 121/78 (92) Pulse Ox 90 100 08/22/18 08/22/18 08/22/18 08/22/18 21:20 21:30 21:35 22:00 Pulse 82 75 B/P (MAP) 140/70 (93) 130/74 (92) 122/69 (86) Pulse Ox 100 100 08/22/18 22:30 Pulse 70 B/P (MAP) 119/67 (84) Pulse Ox 100 Intake and Output 08/22/18 08/22/18 08/23/18 15:00 23:00 07:00 Intake Total 1000 ml Balance 1000 ml Physical Exam General Appearance: The patient is alert. No acute distress, but is anxious and concerned about the bleeding and distention. Eyes: Pupils are equal, round. No pallor, injection or icterus. ENT: Mucous membranes are moist. Normal oral mucosa. Posterior oropharynx is normal. Neck: Supple and non tender. Respiratory: Lungs are clear to auscultation. Cardiovascular: Regular rate and rhythm. No murmurs, gallops or rubs. Normal capillary refill. No edema. Gastrointestinal: Abdomen is soft, there is some distention. No focal tenderness but there is some diffuse discomfort. No rebound or guarding. No masses or organomegaly. Normal active bowel sounds. No costovertebral angle tenderness with percussion. Rectal exam is tender with some inflamed internal hemorrhoids but no masses felt. Stool is darker brown in color. Sent to the lab for occult blood which was positive. Neurological: Alert and oriented x3. No focal neurologic deficits Skin: Warm and dry. DIFFERENTIAL DIAGNOSIS: After history and physical exam, differential diagnosis was considered for gentleman with recent bright red blood in the rectum with darker stools possible melena with positive guaiac tonight and abdominal distention and discomfort. Medical Decision Making Data Points Result Diagram: 08/22/18195808/22/181958 Laboratory Hematology Test 08/22/18 19:30 08/22/18 19:59 08/22/18 20:00 Urine Color Yellow Urine Clarity Clear Urine pH 5.0 pH (4.8-9.5) Urine Specific Duncan 1.013 Urine Protein Negative mg/dL (NEGATIVE) Urine Glucose (UA) Negative mg/dL (NEGATIVE) Urine Ketones Negative mg/dL (NEGATIVE) Urine Blood Negative (NEGATIVE) Urine Nitrite Negative (NEGATIVE) Urine Bilirubin Negative (NEGATIVE) Urine Urobilinogen Negative mg/dL (0.2-1.9) Urine Leukocyte Esterase Negative (NEGATIVE) Urine RBC <1 /HPF (0-2/HPF) Urine WBC 1 /HPF (0-5/HPF) Urine Squamous Epithelial Cells None /LPF (</=FEW) Urine Bacteria Negative /HPF (NONE-FEW) Urine Hyaline Casts Few /LPF (NONE-FEW) Urine Mucus Few /HPF (NONE-FEW) Red Blood Count 4.06 M/uL (4.00-5.60) Mean Corpuscular Volume 71.5 fL (80.0-96.0) Mean Corpuscular Hemoglobin 22.1 pg (26.0-33.0) Mean Corpuscular Hemoglobin Concent 30.9 g/dL (32.0-36.0) Red Cell Distribution Width 19.7 % (11.5-14.5) Mean Platelet Volume 8.2 fL (7.2-11.1) Neutrophils (%) (Auto) 69.7 % (39.4-72.5) Lymphocytes (%) (Auto) 22.9 % (17.6-49.6) Monocytes (%) (Auto) 6.0 % (4.1-12.4) Eosinophils (%) (Auto) 0.9 % (0.4-6.7) Basophils (%) (Auto) 0.5 % (0.3-1.4) Nucleated RBC Relative Count (auto) 0.2 /100WBC Neutrophils # (Auto) 7.2 K/uL (2.0-7.4) Lymphocytes # (Auto) 2.4 K/uL (1.3-3.6) Monocytes # (Auto) 0.6 K/uL (0.3-1.0) Eosinophils # (Auto) 0.1 K/uL (0.0-0.5) Basophils # (Auto) 0.1 K/uL (0.0-0.1) Nucleated RBC Absolute Count (auto) 0.02 K/uL Peripheral Blood Smear No Y/N Prothrombin Time 13.6 seconds (12.0-14.4) Prothromb Time International Ratio 1.04 Activated Partial Thromboplast Time 26 seconds (23-35) Sodium Level 139 mmol/L (137-145) Potassium Level 4.2 mmol/L (3.5-5.0) Chloride Level 102 mmol/L (98-107) Carbon Dioxide Level 28 mmol/L (22-30) Blood Urea Nitrogen 9 mg/dl (9-21) Creatinine 1.20 mg/dl (0.66-1.25) Glomerular Filtration Rate Calc > 60.0 Random Glucose 106 mg/dl (75-110) Calcium Level 8.9 mg/dl (8.4-10.2) Total Bilirubin 0.3 mg/dl (0.2-1.3) Aspartate Amino Transf (AST/SGOT) 26 U/L (0-35) Alanine Aminotransferase (ALT/SGPT) 35 U/L (0-56) Alkaline Phosphatase 67 U/L (0-126) Total Protein 7.2 g/dl (6.3-8.2) Albumin 4.0 g/dl (3.5-5.0) Amylase Level 117 U/L (0-110) Lipase 105 U/L (23-300) Helicobacter pylori IgG Antibody Negative (NEGATIVE) Stool Occult Blood (IFOB) Positive (NEGATIVE) Chemistry Test 08/22/18 19:30 08/22/18 19:59 08/22/18 20:00 Urine Color Yellow Urine Clarity Clear Urine pH 5.0 pH (4.8-9.5) Urine Specific Duncan 1.013 Urine Protein Negative mg/dL (NEGATIVE) Urine Glucose (UA) Negative mg/dL (NEGATIVE) Urine Ketones Negative mg/dL (NEGATIVE) Urine Blood Negative (NEGATIVE) Urine Nitrite Negative (NEGATIVE) Urine Bilirubin Negative (NEGATIVE) Urine Urobilinogen Negative mg/dL (0.2-1.9) Urine Leukocyte Esterase Negative (NEGATIVE) Urine RBC <1 /HPF (0-2/HPF) Urine WBC 1 /HPF (0-5/HPF) Urine Squamous Epithelial Cells None /LPF (</=FEW) Urine Bacteria Negative /HPF (NONE-FEW) Urine Hyaline Casts Few /LPF (NONE-FEW) Urine Mucus Few /HPF (NONE-FEW) White Blood Count 10.3 k/uL (4.5-11.0) Red Blood Count 4.06 M/uL (4.00-5.60) Hemoglobin 9.0 g/dL (14.0-18.0) Hematocrit 29.0 % (42.0-52.0) Mean Corpuscular Volume 71.5 fL (80.0-96.0) Mean Corpuscular Hemoglobin 22.1 pg (26.0-33.0) Mean Corpuscular Hemoglobin Concent 30.9 g/dL (32.0-36.0) Red Cell Distribution Width 19.7 % (11.5-14.5) Platelet Count 261 K/uL (150-450) Mean Platelet Volume 8.2 fL (7.2-11.1) Neutrophils (%) (Auto) 69.7 % (39.4-72.5) Lymphocytes (%) (Auto) 22.9 % (17.6-49.6) Monocytes (%) (Auto) 6.0 % (4.1-12.4) Eosinophils (%) (Auto) 0.9 % (0.4-6.7) Basophils (%) (Auto) 0.5 % (0.3-1.4) Nucleated RBC Relative Count (auto) 0.2 /100WBC Neutrophils # (Auto) 7.2 K/uL (2.0-7.4) Lymphocytes # (Auto) 2.4 K/uL (1.3-3.6) Monocytes # (Auto) 0.6 K/uL (0.3-1.0) Eosinophils # (Auto) 0.1 K/uL (0.0-0.5) Basophils # (Auto) 0.1 K/uL (0.0-0.1) Nucleated RBC Absolute Count (auto) 0.02 K/uL Peripheral Blood Smear No Y/N Prothrombin Time 13.6 seconds (12.0-14.4) Prothromb Time International Ratio 1.04 Activated Partial Thromboplast Time 26 seconds (23-35) Glomerular Filtration Rate Calc > 60.0 Calcium Level 8.9 mg/dl (8.4-10.2) Total Bilirubin 0.3 mg/dl (0.2-1.3) Aspartate Amino Transf (AST/SGOT) 26 U/L (0-35) Alanine Aminotransferase (ALT/SGPT) 35 U/L (0-56) Alkaline Phosphatase 67 U/L (0-126) Total Protein 7.2 g/dl (6.3-8.2) Albumin 4.0 g/dl (3.5-5.0) Amylase Level 117 U/L (0-110) Lipase 105 U/L (23-300) Helicobacter pylori IgG Antibody Negative (NEGATIVE) Stool Occult Blood (IFOB) Positive (NEGATIVE) Coagulation Test 08/22/18 19:59 Prothrombin Time 13.6 seconds Prothromb Time International Ratio 1.04 Activated Partial Thromboplast Time 26 seconds Urinalysis Test 08/22/18 19:30 Urine Color Yellow Urine Clarity Clear Urine pH 5.0 pH (4.8-9.5) Urine Specific Duncan 1.013 Urine Protein Negative mg/dL (NEGATIVE) Urine Glucose (UA) Negative mg/dL (NEGATIVE) Urine Ketones Negative mg/dL (NEGATIVE) Urine Blood Negative (NEGATIVE) Urine Nitrite Negative (NEGATIVE) Urine Bilirubin Negative (NEGATIVE) Urine Urobilinogen Negative mg/dL (0.2-1.9) Urine Leukocyte Esterase Negative (NEGATIVE) Urine RBC <1 /HPF (0-2/HPF) Urine WBC 1 /HPF (0-5/HPF) Urine Squamous Epithelial Cells None /LPF (</=FEW) Urine Bacteria Negative /HPF (NONE-FEW) Urine Hyaline Casts Few /LPF (NONE-FEW) Urine Mucus Few /HPF (NONE-FEW) EKG/Imaging Imaging EXAMINATION: CT Abdomen and Pelvis With Contrast 08/22/2018 7:26 PM HISTORY: abd distension, melena and rectal bleeding TECHNIQUE: Spiral scan was through the abdomen and pelvis during injection of nonionic iodinated intravenous contrast. Contrast: 75 mL of IV Isovue 370. One of the following dose optimization techniques was utilized in the performance of this exam: Automated exposure control; adjustment of the mA and/or kV according to the patient's size; or use of an iterative reconstruction technique. Specific details can be referenced in the facility's radiology CT exam operational policy. COMPARISON STUDIES: None. FINDINGS: Liver / biliary: Well-circumscribed hypoenhancing cysts in the liver, largest 1.9 cm. Pancreas: Negative Spleen: negative Adrenal glands: negative Kidneys / retroperitoneum: Small hypoenhancing cortical foci presumably are benign cysts. Symmetric enhancement. No perinephric stranding. No stone or obstruction. Pelvic structures: Bladder contours are normal. Prostate is not significantly enlarged. Bowel / peritoneum / mesenteries: Moderate volume of fecal material in the ascending and transverse colon. Normal appendix. No diverticular change or features of colitis. No defined mass in the anorectal area or elsewhere within bowel.. No obstruction. No ascites or free air. Vessels: Mild atherosclerosis. Musculoskeletal / Body wall: Previous lumbosacral fusion. Degenerative changes in the spine. Fatty umbilical hernia. Lymph node assessment: Nonspecific lymph nodes along the pelvic sidewall and iliacs on each side. No clear pathologic adenopathy. Lower chest: negative IMPRESSION: No significant acute abnormality of abdomen or pelvis evident. Report Dictated By: Piero Renteria MD at 08/22/2018 9:14 PM ED Course/Re-evaluation Clinical Indication for ER IV: Hydration, IV Access ED Course Blood work shows anemia. CT scan without any abnormalities noted. Discussed the case with Dr. Mitchell. We will admit the patient, start a bowel prep, and planned for further evaluation with colonoscopy in the morning. Cast all these findings with the patient as well who agrees with the plan. Decision to Disposition Date: August 22, 2018 Decision to Disposition Time: 21:56 Depart Departure Latest Vital Signs Vital Signs Date Time Temp Pulse Resp B/P (MAP) Pulse Ox O2 Delivery O2 Flow Rate FiO2 08/22/18 22:30 70 119/67 (84) 100 08/22/18 18:49 98.8 15 Room Air Impression: Primary Impression: Lower gastrointestinal bleed Condition: Condition Unchanged Disposition: Admitted from ER JAJA FLORES MD August 22, 2018 19:14
[2018-08-22] MEDS ORDERED: NS(*) 0.9% 1000 ML BAG 1,000 ML IV ONE (19:26)
[2018-08-22] MEDS ORDERED: ONDANSETRON 4 MG/2 ML VIAL IVP ONE (19:30)
[2018-08-22 20:12] LABS: PLATELET COUNT, AUTOMATED 261 K/uL (150-450)
[2018-08-22] MEDS ORDERED: IOPAMIDOL 76% 150 ML INFUS BTL 150 ML ONE (20:19)
[2018-08-22 20:22] LABS: INR 1.04
--- NOTE | 2018-08-22 21:24 | RADIOLOGY IMAGING REPORT ---
FACILITY: [facility] PATIENT NAME: Michael Ramirez : 1960 MR: [id number] V: [id number] EXAM DATE: ORDERING PHYSICIAN: JAJA FLORES TECHNOLOGIST: Location: [facility] Patient: Michael Ramirez : 1960 Visit/Account:[id number] Date of Sevice: 08/22/2018 EXAMINATION: CT Abdomen and Pelvis With Contrast 08/22/2018 7:26 PM HISTORY: abd distension, melena and rectal bleeding TECHNIQUE: Spiral scan was through the abdomen and pelvis during injection of nonionic iodinated in travenous contrast. Contrast: 75 mL of IV Isovue 370. One of the following dose optimization techniques was utilized in the performance of this exam: Autom ated exposure control; adjustment of the mA and/or kV according to the patient's size; or use of an i terative reconstruction technique. Specific details can be referenced in the facility's radiology C T exam operational policy. COMPARISON STUDIES: None. FINDINGS: Liver / biliary: Well-circumscribed hypoenhancing cysts in the liver, largest 1.9 cm. Pancreas: Negative Spleen: negative Adrenal glands: negative Kidneys / retroperitoneum: Small hypoenhancing cortical foci presumably are benign cysts. Symmetric e nhancement. No perinephric stranding. No stone or obstruction. Pelvic structures: Bladder contours are normal. Prostate is not significantly enlarged. Bowel / peritoneum / mesenteries: Moderate volume of fecal material in the ascending and transverse c olon. Normal appendix. No diverticular change or features of colitis. No defined mass in the anorecta l area or elsewhere within bowel.. No obstruction. No ascites or free air. Vessels: Mild atherosclerosis. Musculoskeletal / Body wall: Previous lumbosacral fusion. Degenerative changes in the spine. Fatty um bilical hernia. Lymph node assessment: Nonspecific lymph nodes along the pelvic sidewall and iliacs on each side. No clear pathologic adenopathy. Lower chest: negative IMPRESSION: No significant acute abnormality of abdomen or pelvis evident. Report Dictated By: Piero Renteria MD at 08/22/2018 9:14 PM Report E-Signed By: Piero Renteria MD at 08/22/2018 9:21 PM [id number]
[2018-08-22 23:31] VITALS: BP 145/63
[2018-08-23] VITALS (9 sets, daily range): BP systolic 113–141; BP diastolic 63–99; BMI 33.8
[2018-08-23] MEDS ORDERED: PANTOPRAZOLE SOD 40 MG IV VIAL IVP SCH (00:29)
[2018-08-23] MEDS ORDERED: PEG (High)/E-LYTE SOLN 4000 ML PO ONE (00:30)
[2018-08-23] MEDS ORDERED: NS(*) 0.9% 1000 ML BAG 1,000 ML IV PRN (00:30)
[2018-08-23] MEDS ORDERED: HYDROMORPHONE HCL 1 MG/ML SYRINGE IVP PRN (00:35)
[2018-08-23] MEDS: ONDANSETRON 4 MG/2 ML VIAL IVP PRN ×3 (01:35→15:33)
[2018-08-23 05:46] LABS: PLATELET COUNT, AUTOMATED 288 K/uL (150-450)
[2018-08-23] MEDS ORDERED: NORMOSOL R SOLN(*) 1000 ML BAG 1,000 ML IV ONE (10:30)
[2018-08-23] MEDS ORDERED: PROPOFOL EMUL(*) 10MG/ML 20 ML 60 ML ONE (10:58)
[2018-08-23] MEDS ORDERED: LIDOCAINE MPF 1% 5 ML VIAL ONE (10:58)
--- NOTE | 2018-08-23 11:22 | Gen Surgery History & Physical ---
History of Present Illness Chief Complaint Dark and bright red blood per rectum History of Present Illness 58yo male presents to the ER with a mixture of dark maroon and bright red blood per rectum. He has a prior h/o hemorrhoids and he's had several hemorrhoid procedures. Last colonoscopy was 12 years ago, polyps removed, recommended col onoscopy in 5 years but he "just forgot." No known FH CRC. Feels bloated. Feels like there's obstruction at anus due to his hemorrhoids. Not much abdominal pain, occasional "twinges" of discomfort in LLQ. Takes ASA 81mg every day but no other significant NSAIDS use. No steroid use. Denies other medical problems but apparently had TIA 4 months ago. Takes no medications every day. He's had some hand and feet surgery but not other surgery. History Problems: (1) Microcytic anemia Status: Chronic (2) History of TIA (transient ischemic attack) Status: Chronic (3) Hx of foot surgery Status: Chronic Home Meds Active Scripts Albuterol Sulfate 90 Mcg/Act (PROAIR HFA 90 MCG/ACT) 8.5 Gm Hfa.aer.ad, 1-2 PUFF IH 3-4XD for wheezing for 30 Days, #1 INHALER Prov:PATRICIA BEACH DO 04/26/18 Reported Medications Albuterol Sulfate 0.083% (ALBUTEROL SULFATE 0.083%) 2.5 Mg/3 Ml Vial.neb, 2.5 MG INH, INH 04/25/18 Naproxen Sodium (ALEVE) 220 Mg Tablet, 220 MG PO TID, TAB 04/25/18 Discontinued Scripts Promethazine Hcl (PROMETHAZINE HCL) 25 Mg Tablet, 12.5 MG PO Q8H for Nausea for 7 Days, #10 TAB Prov:PATRICIA BEACH DO 04/26/18 Prednisone (PREDNISONE) 20 Mg Tablet, 20 MG PO QDAY for 3 Days, #3 TAB Prov:PATRICIA BEACH DO 04/26/18 Oseltamivir Phosphate (TAMIFLU) 75 Mg Cap, 75 MG PO Q12H@1100,2300 for 3 Days, #6 CAP Prov:PATRICIA BEACH DO 04/26/18 Aspirin (ASPIRIN EC) 81 Mg Tablet.dr, 81 MG PO QDAY for 30 Days, TAB Prov:PATRICIA BEACH DO 04/26/18 Allergies: Coded Allergies: codeine (Verified Allergy, Intermediate, SWELLING, 08/22/18) morphine (Verified Allergy, Intermediate, SWELLING, 08/22/18) Patient History: FH: cancer BROTHER OR SISTER FH: gastric ulcer FATHER Review of Systems All Systems Reviewed/Normal: Yes, Except as Noted Gastrointestinal: Hematochezia, Melena Exam General Appearance: Alert, Awake, No Acute Distress, Afebrile Neuro: No Gross deficits Eyes: PERRLA GI: Abd Soft and Non-Tender Extremities: Warm, Perfused Psych: Alert & Oriented X3, Appropriate Mood & Affect Medical Decision Making Data Points Result Diagram: 08/23/18 0525 08/22/181958 Assessment and Plan Problems: (1) Melena Status: Chronic Assessment & Plan: 08/23/18: Admitted, bowel prep completed, EGD and colonoscopy, possible hemorrhoid banding and/or hemorrhoidectomy this morning. I have explained these procedures to the patient in great detail along with the alternatives, risks, and expected recovery. He indicates his understanding of this discussion and his questions have been answered. He would like to proceed with these procedures. (2) BRBPR (bright red blood per rectum) Status: Chronic (3) Hemorrhoids Status: Chronic (4) Abdominal bloating Status: Chronic (5) Obstipation Status: Chronic (6) Anemia Status: Chronic Condition Stable. Time Spent: < 30 min Venous Thromboembolism VTE Risk Physician Assess for VTE Risk: Yes Patient's VTE Risk: Low VTE Diagnostic Test 2 Days Prior to Admit: No Antithrombotics Is Pt On Any Antithrombotics?: No Prophylaxis Tx Contraindicated Pharmacological Contraindicati: Active Bleeding Problem Qualifiers (1) Anemia: Anemia type: iron deficiency Iron deficiency anemia type: chronic blood loss Qualified Codes: D50.0 - Iron deficiency anemia secondary to blood loss (chronic) JENNIFER JARVIS MD August 23, 2018 11:22
[2018-08-23] MEDS ORDERED: ONDANSETRON 4 MG/2 ML VIAL ONE (11:29)
[2018-08-23] MEDS ORDERED: PROPOFOL EMUL(*) 10MG/ML 20 ML 20 ML ONE ×3 (11:52→12:33)
[2018-08-23] MEDS ORDERED: fentaNYL CITR 100 MCG/2 ML AMP ONE ×3 (12:14→14:00)
[2018-08-23] MEDS ORDERED: DEXAMETHASONE SOD 4 MG/ML VIAL ONE (12:15)
[2018-08-23] MEDS ORDERED: ROPIVACAINE 0.5% 20 ML VIAL ONE (12:45)
[2018-08-23] MEDS ORDERED: PIPERACILLIN/TAZO*3.375GM VIAL 3.375 GM in NS(*) 0.9% 100 ML MINI-BAG 100 ML IVPB ONE (12:55)
[2018-08-23] MEDS ORDERED: FLUSH 10 ML SYR IVP PRN (13:15)
[2018-08-23] MEDS ORDERED: HYDROmorphone HCL 2 MG/ML SDV IVP PRN (13:15)
[2018-08-23] MEDS ORDERED: NALOXONE HCL 0.4 MG/ML VIAL IVP PRN (13:15)
--- NOTE | 2018-08-23 13:34 | Post Operative Progress Note ---
Post Operative Progress Note Date: August 23, 2018 Time: 13:23 Surgeon: Allen Dictation number: [id number] Anesthesia: LMA by Dr. Rudolph Pre-Op Diagnosis: GI bleeding Anemia H/O colon polyps Post-Op Diagnosis: Ascending colon mass Transverse colon polyp Hemorrhoids Rectal prolapse Findings: Large ascending colon polyp or small mass <1cm proximal transverse colon polyp Prolapsed hemorrhoids and rectum (source of bleeding) Procedure(s): EGD Colonoscopy with biopsy and snare polypectomy Excisional hemorrhoidectomy with harmonic scalpel Specimen Removed:(May be N/A): 1) Ascending colon mass 2) Transverse colon polyp 3) hemorrhoids Complications: None Fluids: see anesthesia record Estimated Blood Loss: Minimal Date OP Note Dictated: August 23, 2018 Time OP Note Dictated: 13:27 JENNIFER JARVIS MD August 23, 2018 13:34
[2018-08-23] MEDS: traMADol 50 MG TAB PO PRN ×2 (15:34→19:57)
[2018-08-23] MEDS ORDERED: PROMETHAZINE HCL 25 MG TAB PO PRN (16:30)
[2018-08-23] MEDS ORDERED: diphenhydrAMINE 50 MG/ML VIAL IVP PRN (16:30)
[2018-08-23] MEDS: FERROUS SULFATE 325 MG TAB PO SCH (17:39)
[2018-08-23] MEDS: ASCORBIC ACID 500 MG TAB PO SCH (17:39)
[2018-08-23] MEDS: PIPERACILLIN/TAZO*3.375GM VIAL 3.375 GM in NS(*) 0.9% 100 ML MINI-BAG 100 ML IVPB SCH (19:01)
[2018-08-23] MEDS: FAMOTIDINE 20 MG TAB PO SCH (19:57)
[2018-08-23] MEDS: DOCUSATE SODIUM 100 MG CAP PO SCH (19:57)
[2018-08-24] VITALS (12 sets, daily range): BP systolic 101–137; BP diastolic 57–86
[2018-08-24] MEDS: PIPERACILLIN/TAZO*3.375GM VIAL 3.375 GM in NS(*) 0.9% 100 ML MINI-BAG 100 ML IVPB SCH ×4 (00:46→18:25)
--- NOTE | 2018-08-24 01:15 | OPERATIVE REPORT 1 ---
EVENT DATE: August 23, 2018 SURGEON: Davide Villa MD ANESTHESIOLOGIST: Maurilio Rudolph MD ANESTHESIA: LMA. PREOPERATIVE DIAGNOSES 1. Lower gastrointestinal bleeding. 2. Anemia. 3. History of colon polyps. POSTOPERATIVE DIAGNOSES 1. Ascending colon mass. 2. Transverse colon polyp. 3. Hemorrhoids. 4. Rectal prolapse, mild. PROCEDURE PERFORMED 1. Esophagogastroduodenoscopy. 2. Colonoscopy with biopsy of ascending colon mass and snare polypectomy. 3. Anal exam under anesthesia with excisional hemorrhoidectomy with the harmonic scalpel. FINDINGS This patient had either a large ascending colon polyp or a small mass that I biopsied. There was a less than 1 cm proximal transverse colon polyp. He had prolapsed internal hemorrhoids and a small amount of prolapsing rectum, which was the source of his bleeding. The prep was excellent. SPECIMENS 1. Ascending colon mass. 2. Transverse colon polyp. 3. Hemorrhoids. INDICATIONS This is a 58-year-old gentleman who came in to the emergency room experiencing increasing amounts of blood per rectum. He was found to be anemic. He was anemic in April, about four months ago, but the anemia was even much more worse this time. He had a previous history of a colonoscopy 12 years ago where polyps were found, but he apparently never had another colonoscopy. I admitted him and consented him for EGD, colonoscopy, and anal exam under anesthesia with either rubber banding or excision of any hemorrhoids that I find. DESCRIPTION OF PROCEDURE Patient was brought to the operating room and placed supine on the operating table. TIVA anesthesia was administered. He was placed in the left lateral decubitus position, and I performed an EGD. I advanced the scope through the esophagus all the way to the third part of the duodenum without any problems. I slowly withdrew the scope as I looked at all mucosal surfaces for any abnormalities. I was able to inspect the first, second and third portions of the duodenum, stomach, esophagus, and larynx, and found no abnormalities, no inflammation, ulcers, or evidence of old or new blood, or any pathology that looked like it had recently bled. I then performed the colonoscopy after the colonoscope was set up and tested to ensure it was completely functional. I lubricated it and inserted it into his rectum through his anus. Initially, on digital rectal exam, I could feel masses in the anal canal, but externally, other than some skin tags, the anus looked unremarkable. I then advanced the scope all the way to the cecum and then slowly withdrew the scope as I looked at all mucosal surfaces for any abnormalities. In the mid-ascending colon was a large polyp or small mass, and I took a couple of snare excisional biopsies of this polyp but did not remove the entire polyp due to its size. I then withdrew the scope into the transverse colon and saw a small polyp, which I removed in its entirety with the snare, and then continued inspecting the rest of the colon and found no other abnormalities inside the colon or rectum other than hemorrhoids in the distal rectum. I then withdrew the scope, and then patient was placed supine on the table, placed in candy-cane stirrups, and Dr. Rudolph put in an LMA. His perianal region was prepped and draped in sterile fashion, and the patient started coughing and expelling flatus from the insufflation. In doing so, I could immediately see prolapsing distal rectal tissue as well as hemorrhoids. There was not much prolapsed tissue, but there was definite prolapsing rectum. I then performed an anal exam under anesthesia using the Hill-Curtis retractor, looking around. There were two distinct areas of hemorrhoidal tissue, and so I obtained the harmonic scalpel and made sure I was away from the sphincter muscles, and I cut out these two areas of hemorrhoidal tissue, and these were sent to pathology. I then closed the defect, which was well approximated by the harmonic cutting process, but still oversewed this with running 3-0 chromic sutures. During this procedure, I also noticed really constant oozing of bright red blood from these hemorrhoidal areas, but this stopped at the end of this case. I packed his anal canal with a rolled-up Gelfoam. Then, gauze and ABD pads were placed in his buttock area, and he was placed in mesh panties. He was then awakened, LMA removed, and transported to the recovery room in stable condition, having tolerated the procedure without any apparent problems. KENDRA
[2018-08-24 06:10] LABS: PLATELET COUNT, AUTOMATED 241 K/uL (150-450)
--- NOTE | 2018-08-24 08:53 | General Surgery Progress Note ---
Subjective Progress Notes Subjective Pt had urinary retention yesterday evening, johnston placed. Only complaint this morning is discomfort around anus and feeling that he needs to defecate but unable to. Physical Exam Vital Signs Date Time Temp Pulse Resp B/P (MAP) Pulse Ox O2 Delivery O2 Flow Rate FiO2 08/24/18 06:46 92 101/57 (72) 08/24/18 04:30 98.4 16 96 Nasal Cannula 1.0 Intake and Output 08/24/18 07:00 Intake Total 3382 ml Output Total 1150 ml Balance 2232 ml Intake Oral 860 ml IV Total 2522 ml Output Urine Total 1150 ml # Voids 2 # Bowel Movements 2 General Appearance: Alert, Awake, No Acute Distress, Afebrile Neuro: No Gross deficits GI: Soft and Non-Tender Extremities: Warm, Perfused Result Diagram: 08/24/18 0537 08/24/18536 Assessment and Plan Problems: (1) Melena Status: Resolved Assessment & Plan: 08/23/18: Admitted, bowel prep completed, EGD and colonoscopy, possible hemorrhoid banding and/or hemorrhoidectomy this morning. I have explained these procedures to the patient in great detail along with the alternatives, risks, and expected recovery. He indicates his understanding of this discussion and his questions have been answered. He would like to proceed with these procedures. 08/24/18: POD#1 s/p EGD, Colonoscopy with polypectomy and biopsy of ascending colon lesion (large polyp or small cancer), hemorrhoidectomy x2. H/H down this morning, will transfuse 2 Units pRBC; pt agreeable with this. Start fiber and miralax to assist BMs (although he may not have a BM for a couple of days due to bowel prep cleaning him out) and will send him home on bowel regimen including fiber to try and prevent future perianal issues. Recommended that he start Kegel exercises as well due to small amount of prolapsing rectum. Leave johnston in today, remove tomorrow morning. After discharge, will see him back in the office to see how he's healing and will await path results but will need right hemicolectomy due to the lesion in his ascending colon that is unresectable endoscopically due to it's size. Pt seems to understand this discussion and the plan and he seems agreeable with it. (2) BRBPR (bright red blood per rectum) Status: Resolved (3) Hemorrhoids Status: Resolved (4) Abdominal bloating Status: Chronic (5) Obstipation Status: Chronic (6) Anemia Status: Chronic (7) Polyp of ascending colon Status: Chronic Assessment & Plan: Too large to remove endoscopically, will need surgical resection in the next few weeks. (8) Postoperative urinary retention Status: Acute Assessment & Plan: Bladder decompression with johnston, will remove tomorrow Condition STable. Time Spent: < 30 min Exam Sepsis Risk: No Definite Risk Problem Qualifiers (1) Hemorrhoids: Hemorrhoid type: third degree Qualified Codes: K64.2 - Third degree hemorrhoids (2) Anemia: Anemia type: iron deficiency Iron deficiency anemia type: chronic blood loss Qualified Codes: D50.0 - Iron deficiency anemia secondary to blood loss (chronic) (3) Polyp of ascending colon: Colon polyp type: unspecified Qualified Codes: D12.2 - Benign neoplasm of ascending colon JENNIFER JARVIS MD August 24, 2018 08:53
[2018-08-24] MEDS ORDERED: NS(*) 0.9% 250 ML BAG 250 ML ONE (09:22)
[2018-08-24] MEDS: POLYETHYLENE GLYCOL 17 GM PKT PO SCH (09:41)
[2018-08-24] MEDS: PSYLLIUM 28% 1 PACKET PO SCH (09:41)
[2018-08-24] MEDS: FAMOTIDINE 20 MG TAB PO SCH ×2 (09:42→20:52)
[2018-08-24] MEDS: FERROUS SULFATE 325 MG TAB PO SCH ×2 (09:42→17:15)
[2018-08-24] MEDS: traMADol 50 MG TAB PO PRN ×3 (09:42→20:52)
[2018-08-24] MEDS: ASCORBIC ACID 500 MG TAB PO SCH ×2 (09:42→17:15)
[2018-08-24] MEDS: DOCUSATE SODIUM 100 MG CAP PO SCH ×2 (09:42→20:52)
[2018-08-24] MEDS: ACETAMINOPHEN 325 MG TAB PO PRN ×3 (11:06→22:47)
--- NOTE | 2018-08-24 11:15 | NUR ---
Patient ambulating in hallway while 1st unit of blood finished infusion. Reported feeling tightness in chest and throbbing in head as well as generalized weakness. Sat in waiting room on unit; wheeled back to room via w/c. Assisted into bed to lie down, reported immediate relief. Vital signs stable. Symptoms resolved with rest.
--- NOTE | 2018-08-24 14:00 | NUR ---
1300 IV antibiotic administration delayed until blood product finished infusing.
[2018-08-25] MEDS: PIPERACILLIN/TAZO*3.375GM VIAL 3.375 GM in NS(*) 0.9% 100 ML MINI-BAG 100 ML IVPB SCH ×5 (01:00→18:35)
[2018-08-25] MEDS: traMADol 50 MG TAB PO PRN ×2 (01:00→14:09)
[2018-08-25 02:42] VITALS: BP 91/61
[2018-08-25] MEDS: ACETAMINOPHEN 325 MG TAB PO PRN (02:43)
[2018-08-25] MEDS: ONDANSETRON 4 MG/2 ML VIAL IVP PRN (04:22)
[2018-08-25 06:13] LABS: PLATELET COUNT, AUTOMATED 242 K/uL (150-450)
[2018-08-25 07:31] VITALS: BP 110/70
[2018-08-25] MEDS: FERROUS SULFATE 325 MG TAB PO SCH ×2 (08:15→17:05)
[2018-08-25] MEDS: DOCUSATE SODIUM 100 MG CAP PO SCH ×2 (08:15→21:05)
[2018-08-25] MEDS: ASCORBIC ACID 500 MG TAB PO SCH ×2 (08:15→17:05)
[2018-08-25] MEDS: FAMOTIDINE 20 MG TAB PO SCH ×2 (08:15→21:05)
[2018-08-25] MEDS: POLYETHYLENE GLYCOL 17 GM PKT PO SCH (08:15)
[2018-08-25] MEDS: PSYLLIUM 28% 1 PACKET PO SCH (08:15)
--- NOTE | 2018-08-25 08:35 | General Surgery Progress Note ---
Subjective Progress Notes Subjective Main complaint is pain in his anal area. Feels like he's got to defecated but he can't. No other complaints this morning. Physical Exam Vital Signs Date Time Temp Pulse Resp B/P (MAP) Pulse Ox O2 Delivery O2 Flow Rate FiO2 08/25/18 07:34 93 Nasal Cannula 1.0 08/25/18 07:31 98.5 66 16 110/70 (83) Intake and Output 08/25/18 07:00 Intake Total 1827 ml Output Total 2075 ml Balance -248 ml Intake Oral 1102 ml IV Total 225 ml Blood Product 500 ml Output Urine Total 2075 ml # Bowel Movements 3 General Appearance: Alert, Awake, No Acute Distress, Afebrile GI: Soft and Non-Tender, Other (External anal exam unremarkable. DOMINGUEZ not performed for patient comfort.) Extremities: Warm, Perfused Result Diagram: 08/25/18 0543 08/25/18 0543 Assessment and Plan Problems: (1) Melena Status: Resolved Assessment & Plan: 08/23/18: Admitted, bowel prep completed, EGD and colonoscopy, possible hemorrhoid banding and/or hemorrhoidectomy this morning. I have explained these procedures to the patient in great detail along with the alternatives, risks, and expected recovery. He indicates his understanding of this discussion and his questions have been answered. He would like to proceed with these procedures. 08/24/18: POD#1 s/p EGD, Colonoscopy with polypectomy and biopsy of ascending colon lesion (large polyp or small cancer), hemorrhoidectomy x2. H/H down this morning, will transfuse 2 Units pRBC; pt agreeable with this. Start fiber and miralax to assist BMs (although he may not have a BM for a couple of days due to bowel prep cleaning him out) and will send him home on bowel regimen including fiber to try and prevent future perianal issues. Recommended that he start Kegel exercises as well due to small amount of prolapsing rectum. Leave johnston in today, remove tomorrow morning. After discharge, will see him back in the office to see how he's healing and will await path results but will need right hemicolectomy due to the lesion in his ascending colon that is unresectable endoscopically due to it's size. Pt seems to understand this discussion and the plan and he seems agreeable with it. 08/25/18: POD#2. Doing well. Will remove johnston this morning and see if he can urinate without problems. Continue bowel regimen. D/C to home if he's urinating without problems. (2) BRBPR (bright red blood per rectum) Status: Resolved (3) Hemorrhoids Status: Resolved (4) Abdominal bloating Status: Chronic (5) Obstipation Status: Chronic (6) Anemia Status: Chronic (7) Polyp of ascending colon Status: Chronic Assessment & Plan: Too large to remove endoscopically, will need surgical resection in the next few weeks. (8) Postoperative urinary retention Status: Acute Assessment & Plan: Bladder decompression with johnston, will remove tomorrow Condition Stable. Time Spent: < 30 min Exam Sepsis Risk: No Definite Risk Problem Qualifiers (1) Hemorrhoids: Hemorrhoid type: third degree Qualified Codes: K64.2 - Third degree hemorrhoids (2) Anemia: Anemia type: iron deficiency Iron deficiency anemia type: chronic blood loss Qualified Codes: D50.0 - Iron deficiency anemia secondary to blood loss (chronic) (3) Polyp of ascending colon: Colon polyp type: unspecified Qualified Codes: D12.2 - Benign neoplasm of ascending colon JENNIFER JARVIS MD August 25, 2018 08:35
[2018-08-25] MEDS ORDERED: MAGNESIUM HYDROXIDE* 30ML UDCP PO ONE (09:30)
[2018-08-25 11:37] VITALS: Ht 180.3 cm; Wt 109.9 kg
[2018-08-25 12:03] VITALS: BP 114/79
[2018-08-25 15:27] VITALS: BP 146/81
[2018-08-25] MEDS ORDERED: MAGNESIUM HYDROXIDE* 30ML UDCP PO PRN (16:00)
--- NOTE | 2018-08-25 18:01 | Miscellaneous Provider Note ---
Miscellaneous Provider Note Note 08/25/18 (evening): Patient feels like he cannot void. He is urinating very small amounts but feels like he cannot empty his bladder. Will reinsert [place] catheter and leave in for a couple more days until the pelvic inflammation resolves from his hemorrhoidectomy. He also feels bloated although he is passing flatus. We'll stop the Metamucil, milk of magnesia, and MiraLAX and wait for improve bowel function. 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 The anal lesions were hyper plastic polyp and hemorrhoids. I discussed his path results with him. Will need surgical resection of the large ascending colon polyp after he has healed from his hemorrhoidectomy. JENNIFER JARVIS MD August 25, 2018 18:01
[2018-08-25 19:56] VITALS: BP 123/91
[2018-08-26] MEDS: traMADol 50 MG TAB PO PRN ×3 (00:02→20:29)
[2018-08-26 00:04] VITALS: BP 109/57
[2018-08-26] MEDS: PIPERACILLIN/TAZO*3.375GM VIAL 3.375 GM in NS(*) 0.9% 100 ML MINI-BAG 100 ML IVPB SCH ×2 (01:42→06:17)
[2018-08-26 06:47] LABS: PLATELET COUNT, AUTOMATED 299 K/uL (150-450)
--- NOTE | 2018-08-26 07:18 | General Surgery Progress Note ---
Subjective Progress Notes Subjective No new complaints. Had urinary retention yesterday, johnston re-inserted, now feeling better. Had a small bloody BM this morning. No other complaints today. Physical Exam Vital Signs Date Time Temp Pulse Resp B/P (MAP) Pulse Ox O2 Delivery O2 Flow Rate FiO2 08/26/18 00:04 98.6 76 16 109/57 (74) 96 Nasal Cannula 1.0 Intake and Output 08/26/18 07:00 Intake Total 2860 ml Output Total 2850 ml Balance 10 ml Intake Oral 2560 ml IV Total 300 ml Output Urine Total 2850 ml # Voids 4 # Bowel Movements 1 General Appearance: Alert, Awake, No Acute Distress, Afebrile GI: Soft and Non-Tender Extremities: Warm, Perfused Result Diagram: 08/25/18 0543 08/26/18 0558 Assessment and Plan Problems: (1) Melena Status: Resolved Assessment & Plan: 08/23/18: Admitted, bowel prep completed, EGD and colonoscopy, possible hemorrhoid banding and/or hemorrhoidectomy this morning. I have explained these procedures to the patient in great detail along with the alternatives, risks, and expected recovery. He indicates his understanding of this discussion and his questions have been answered. He would like to proceed with these procedures. 08/24/18: POD#1 s/p EGD, Colonoscopy with polypectomy and biopsy of ascending colon lesion (large polyp or small cancer), hemorrhoidectomy x2. H/H down this morning, will transfuse 2 Units pRBC; pt agreeable with this. Start fiber and miralax to assist BMs (although he may not have a BM for a couple of days due to bowel prep cleaning him out) and will send him home on bowel regimen including fiber to try and prevent future perianal issues. Recommended that he start Kegel exercises as well due to small amount of prolapsing rectum. Leave johnston in today, remove tomorrow morning. After discharge, will see him back in the office to see how he's healing and will await path results but will need right hemicolectomy due to the lesion in his ascending colon that is unresectable endoscopically due to it's size. Pt seems to understand this discussion and the plan and he seems agreeable with it. 08/25/18: POD#2. Doing well. Will remove johnston this morning and see if he can urinate without problems. Continue bowel regimen. D/C to home if he's urinating without problems. 08/26/18: POD#3. Doing well but still with a lot of perianal and perineal pain, recurrent urinary retention, and difficulty passing flatus and stool. Creatinine is up a little, probably due to poor PO intake. Zosyn may also cause this. Will stop Zosyn and will try ibuprofen (relatively low dose, 200-400mg q6h prn) for improved pain control but will need to follow creatinine and if continues to go up then will need to stop ibuprofen. Will start IV fluids to improve renal perfusion until eating better. He will need to be here until pain control improved, GI function improved, tolerating diet, and possibly urinating without problems but could send him home with catheter in and leg bag if needed. 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 Path results discussed with him. Will discuss definitive resection of large polyp after he's healed from this procedure. (2) BRBPR (bright red blood per rectum) Status: Resolved (3) Hemorrhoids Status: Resolved (4) Abdominal bloating Status: Chronic (5) Obstipation Status: Chronic (6) Anemia Status: Chronic (7) Polyp of ascending colon Status: Chronic Assessment & Plan: Too large to remove endoscopically, will need surgical resection in the next few weeks. (8) Postoperative urinary retention Status: Acute Assessment & Plan: Bladder decompression with johnston, will remove tomorrow Condition Stable. Time Spent: < 30 min Exam Sepsis Risk: No Definite Risk Problem Qualifiers (1) Hemorrhoids: Hemorrhoid type: third degree Qualified Codes: K64.2 - Third degree hemorrhoids (2) Anemia: Anemia type: iron deficiency Iron deficiency anemia type: chronic blood loss Qualified Codes: D50.0 - Iron deficiency anemia secondary to blood loss (chronic) (3) Polyp of ascending colon: Colon polyp type: unspecified Qualified Codes: D12.2 - Benign neoplasm of ascending colon JENNIFER JARVIS MD August 26, 2018 07:18
[2018-08-26 07:37] VITALS: BP 117/77
[2018-08-26] MEDS ORDERED: IBUPROFEN 200 MG TAB PO PRN (08:00)
[2018-08-26] MEDS: DOCUSATE SODIUM 100 MG CAP PO SCH ×2 (08:46→20:29)
[2018-08-26] MEDS: ASCORBIC ACID 500 MG TAB PO SCH ×2 (08:46→17:22)
[2018-08-26] MEDS: FAMOTIDINE 20 MG TAB PO SCH ×2 (08:46→20:29)
[2018-08-26] MEDS: KCL/D1/2NS 20 MEQ 1000 ML 1,000 ML IV SCH ×2 (08:46→20:29)
[2018-08-26] MEDS: FERROUS SULFATE 325 MG TAB PO SCH ×2 (08:46→17:22)
[2018-08-26 12:08] VITALS: BP 122/78
[2018-08-26] MEDS: ACETAMINOPHEN 325 MG TAB PO PRN ×2 (14:48→23:43)
[2018-08-26 14:49] VITALS: BP 140/85
[2018-08-26 19:14] VITALS: BP 123/71
[2018-08-26 23:36] VITALS: BP 137/81
[2018-08-27 04:09] VITALS: BP 118/75
[2018-08-27 06:16] LABS: PLATELET COUNT, AUTOMATED 305 K/uL (150-450)
[2018-08-27] MEDS: KCL/D1/2NS 20 MEQ 1000 ML 1,000 ML IV SCH (07:12)
[2018-08-27 07:14] VITALS: BP 125/64
--- NOTE | 2018-08-27 07:16 | General Surgery Progress Note ---
Subjective Progress Notes Subjective No new complaints today. Still a lot of pain in anal area. Finding it very difficult to pass stool. Physical Exam Vital Signs Date Time Temp Pulse Resp B/P (MAP) Pulse Ox O2 Delivery O2 Flow Rate FiO2 08/27/18 04:09 98.6 70 16 118/75 (89) 97 Nasal Cannula 1.0 l Intake and Output 08/27/18 07:00 Intake Total 2520 ml Output Total 3300 ml Balance -780 ml Intake Oral 1520 ml IV Total 1000 ml Output Urine Total 3300 ml # Voids 2 # Bowel Movements 5 General Appearance: Alert, Awake, No Acute Distress, Afebrile GI: Soft and Non-Tender Extremities: Warm, Perfused Result Diagram: 08/27/1851408/27/18514 Assessment and Plan Problems: (1) Melena Status: Resolved Assessment & Plan: 08/23/18: Admitted, bowel prep completed, EGD and colonoscopy, possible hemorrhoid banding and/or hemorrhoidectomy this morning. I have explained these procedures to the patient in great detail along with the alternatives, risks, and expected recovery. He indicates his understanding of this discussion and his questions have been answered. He would like to proceed with these procedures. 08/24/18: POD#1 s/p EGD, Colonoscopy with polypectomy and biopsy of ascending colon lesion (large polyp or small cancer), hemorrhoidectomy x2. H/H down this morning, will transfuse 2 Units pRBC; pt agreeable with this. Start fiber and miralax to assist BMs (although he may not have a BM for a couple of days due to bowel prep cleaning him out) and will send him home on bowel regimen including fiber to try and prevent future perianal issues. Recommended that he start Kegel exercises as well due to small amount of prolapsing rectum. Leave johnston in today, remove tomorrow morning. After discharge, will see him back in the office to see how he's healing and will await path results but will need right hemicolectomy due to the lesion in his ascending colon that is unresectable endoscopically due to it's size. Pt seems to understand this discussion and the plan and he seems agreeable with it. 08/25/18: POD#2. Doing well. Will remove johnston this morning and see if he can urinate without problems. Continue bowel regimen. D/C to home if he's urinating without problems. 08/26/18: POD#3. Doing well but still with a lot of perianal and perineal pain, recurrent urinary retention, and difficulty passing flatus and stool. Creatinine is up a little, probably due to poor PO intake. Zosyn may also cause this. Will stop Zosyn and will try ibuprofen (relatively low dose, 200-400mg q6h prn) for improved pain control but will need to follow creatinine and if continues to go up then will need to stop ibuprofen. Will start IV fluids to improve renal perfusion until eating better. He will need to be here until pain control improved, GI function improved, tolerating diet, and possibly urinating without problems but could send him home with catheter in and leg bag if needed. 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 Path results discussed with him. Will discuss definitive resection of large polyp after he's healed from this procedure. 08/27/18: POD#4. Doing well. Will remove johnston again this morning and see if he's able to urinate without problems. Will continue to work on [employer]. WBC down to normal. No fevers. Home when able to urinate and defecate without problems. (2) BRBPR (bright red blood per rectum) Status: Resolved (3) Hemorrhoids Status: Resolved (4) Abdominal bloating Status: Resolved (5) Obstipation Status: Resolved (6) Anemia Status: Chronic (7) Polyp of ascending colon Status: Chronic Assessment & Plan: Too large to remove endoscopically, will need surgical resection in the next few weeks. (8) Postoperative urinary retention Status: Acute Assessment & Plan: Bladder decompression with johnston, will remove tomorrow Condition STable. 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
[2018-08-27] MEDS: FAMOTIDINE 20 MG TAB PO SCH ×2 (08:41→21:21)
[2018-08-27] MEDS: ASCORBIC ACID 500 MG TAB PO SCH ×2 (08:41→17:41)
[2018-08-27] MEDS: DOCUSATE SODIUM 100 MG CAP PO SCH ×2 (08:41→21:21)
[2018-08-27] MEDS: FERROUS SULFATE 325 MG TAB PO SCH ×2 (08:41→17:41)
[2018-08-27] MEDS: PSYLLIUM 28% 1 PACKET PO SCH (08:41)
[2018-08-27] MEDS ORDERED: POLYETHYLENE GLYCOL 17 GM PKT PO SCH (09:00)
[2018-08-27 12:16] VITALS: BP 148/92
[2018-08-27] MEDS: traMADol 50 MG TAB PO PRN ×2 (12:43→17:41)
[2018-08-27] MEDS: ACETAMINOPHEN 325 MG TAB PO PRN (15:25)
[2018-08-27 15:27] VITALS: BP 170/105
[2018-08-27 16:03] VITALS: BP 142/84
[2018-08-27 21:25] VITALS: BP 128/84
[2018-08-28 01:42] VITALS: BP 156/90
[2018-08-28] MEDS: traMADol 50 MG TAB PO PRN ×2 (01:47→22:29)
[2018-08-28] MEDS: KCL/D1/2NS 20 MEQ 1000 ML 1,000 ML IV SCH (03:12)
[2018-08-28 06:27] LABS: PLATELET COUNT, AUTOMATED 331 K/uL (150-450)
--- NOTE | 2018-08-28 06:56 | General Surgery Progress Note ---
Subjective Progress Notes Subjective Feels like he has stool to pass but he can't. Feels bloated. Passing flatus without. Enema last night wasn't too effective. Physical Exam Vital Signs Date Time Temp Pulse Resp B/P (MAP) Pulse Ox O2 Delivery O2 Flow Rate FiO2 08/28/18 01:42 98.7 75 14 156/90 (112) 93 Nasal Cannula 0.5 Intake and Output 08/28/18 07:00 Intake Total 1080 ml Balance 1080 ml Intake Oral 1080 ml # Voids 2 # Bowel Movements 1 General Appearance: Alert, Awake, No Acute Distress, Afebrile GI: Soft and Non-Tender (Mildly distended) Extremities: Warm, Perfused Result Diagram: 08/28/1860108/28/18601 Assessment and Plan Problems: (1) Melena Status: Resolved Assessment & Plan: 08/23/18: Admitted, bowel prep completed, EGD and colonoscopy, possible hemorrhoid banding and/or hemorrhoidectomy this morning. I have explained these procedures to the patient in great detail along with the alternatives, risks, and expected recovery. He indicates his understanding of this discussion and his questions have been answered. He would like to proceed with these procedures. 08/24/18: POD#1 s/p EGD, Colonoscopy with polypectomy and biopsy of ascending colon lesion (large polyp or small cancer), hemorrhoidectomy x2. H/H down this morning, will transfuse 2 Units pRBC; pt agreeable with this. Start fiber and miralax to assist BMs (although he may not have a BM for a couple of days due to bowel prep cleaning him out) and will send him home on bowel regimen including fiber to try and prevent future perianal issues. Recommended that he start Kegel exercises as well due to small amount of prolapsing rectum. Leave johnston in today, remove tomorrow morning. After discharge, will see him back in the office to see how he's healing and will await path results but will need right hemicolectomy due to the lesion in his ascending colon that is unresectable endoscopically due to it's size. Pt seems to understand this discussion and the plan and he seems agreeable with it. 08/25/18: POD#2. Doing well. Will remove johnston this morning and see if he can urinate without problems. Continue bowel regimen. D/C to home if he's urinating without problems. 08/26/18: POD#3. Doing well but still with a lot of perianal and perineal pain, recurrent urinary retention, and difficulty passing flatus and stool. Creatinine is up a little, probably due to poor PO intake. Zosyn may also cause this. Will stop Zosyn and will try ibuprofen (relatively low dose, 200-400mg q6h prn) for improved pain control but will need to follow creatinine and if continues to go up then will need to stop ibuprofen. Will start IV fluids to improve renal perfusion until eating better. He will need to be here until pain control improved, GI function improved, tolerating diet, and possibly urinating without problems but could send him home with catheter in and leg bag if needed. 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 Path results discussed with him. Will discuss definitive resection of large polyp after he's healed from this procedure. 08/27/18: POD#4. Doing well. Will remove johnston again this morning and see if he's able to urinate without problems. Will continue to work on BMs. WBC down to normal. No fevers. Home when able to urinate and defecate without problems. 08/28/18: POD#5. Doing well but still having problems with defecation and now he feels bloated. "I feel like I'm blocked." Will get SBFT, water soluble today. H/H stable. No signs of bleeding. Urinating without problems. (2) BRBPR (bright red blood per rectum) Status: Resolved (3) Hemorrhoids Status: Resolved (4) Abdominal bloating Status: Resolved (5) Obstipation Status: Resolved (6) Anemia Status: Chronic (7) Polyp of ascending colon Status: Chronic Assessment & Plan: Too large to remove endoscopically, will need surgical resection in the next few weeks. (8) Postoperative urinary retention Status: Acute Assessment & Plan: Bladder decompression with johnston, will remove tomorrow Condition STable. 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
[2018-08-28] MEDS ORDERED: DIATRIZOATE MEGL/DIATRIZOA SOD 120 ML SOLN PO ONE (07:13)
[2018-08-28 07:31] VITALS: BP 139/90
[2018-08-28] MEDS: FERROUS SULFATE 325 MG TAB PO SCH ×2 (09:55→17:05)
[2018-08-28] MEDS: ASCORBIC ACID 500 MG TAB PO SCH ×2 (09:55→17:05)
[2018-08-28] MEDS: DOCUSATE SODIUM 100 MG CAP PO SCH ×2 (09:55→21:24)
[2018-08-28] MEDS: POLYETHYLENE GLYCOL 17 GM PKT PO SCH (09:55)
[2018-08-28] MEDS: PSYLLIUM 28% 1 PACKET PO SCH (09:55)
[2018-08-28] MEDS: FAMOTIDINE 20 MG TAB PO SCH ×2 (09:57→21:24)
--- NOTE | 2018-08-28 11:29 | RADIOLOGY IMAGING REPORT ---
FACILITY: [facility] [place] PATIENT NAME: Michael Ramirez : 1960 MR: [id number] V: [id number] EXAM DATE: ORDERING PHYSICIAN: JENNIFER JARVIS TECHNOLOGIST: Location: [facility] Patient: Michael Ramirez : 1960 Visit/Account:[id number] Date of Sevice: 08/28/2018 Exam type: XR SMALL BOWEL SERIES History: Abdominal distension; WATER SOLUBLE CONTRAST ONLY Comparison: CT abdomen and pelvis August 22, 2018. Findings: The patient received approximately 480 mL of a dilute Gastrografin suspension. Evaluation of the muc osal detail of the small bowel is somewhat limited due to the water-soluble contrast. The contrast r eached the right-sided the colon in one hour and 10 minutes. Fluoroscopy was not utilized. IMPRESSION: 1. No evidence of small bowel obstruction. The water-soluble contrast reached the right-sided the c olon in one hour and 10 minutes Report Dictated By: Jacquelin Pratt MD at 08/28/2018 11:23 AM Report E-Signed By: Jacquelin Pratt MD at 08/28/2018 11:26 AM WSN:[email or web address]
[2018-08-28 12:02] VITALS: BP 132/88
[2018-08-28 15:16] VITALS: BP 149/89
[2018-08-28] MEDS: ACETAMINOPHEN 325 MG TAB PO PRN (17:05)
[2018-08-28 19:09] VITALS: BP 129/81
[2018-08-28 22:31] VITALS: BP 144/76
[2018-08-29 01:49] VITALS: BP 129/78
[2018-08-29] MEDS: ACETAMINOPHEN 325 MG TAB PO PRN (01:57)
[2018-08-29 05:39] LABS: PLATELET COUNT, AUTOMATED 314 K/uL (150-450)
[2018-08-29 07:18] VITALS: BP 124/75
[2018-08-29] MEDS: ASCORBIC ACID 500 MG TAB PO SCH (07:34)
[2018-08-29] MEDS: FERROUS SULFATE 325 MG TAB PO SCH (07:35)
[2018-08-29] MEDS: PSYLLIUM 28% 1 PACKET PO SCH (09:36)
[2018-08-29] MEDS: POLYETHYLENE GLYCOL 17 GM PKT PO SCH (09:36)
[2018-08-29] MEDS: FAMOTIDINE 20 MG TAB PO SCH (09:36)
[2018-08-29] MEDS: DOCUSATE SODIUM 100 MG CAP PO SCH (09:36)
--- NOTE | 2018-08-29 10:08 | General Surgery Progress Note ---
Subjective Progress Notes Subjective Slept reasonably well. Passing flatus. Showered. Jose diet. Small perianal leakage. Afebrile. Patient Complains of: Neurological: No: Syncope, Confusion, Weakness, Dizziness, Slurred Speech Cardiovascular: No: Chest Pain, Palpitations, Orthostatic Hypotension Respiratory: No: Cough, Congestion, Shortness of Breath, Wheezing Gastrointestinal: Flatus, Bowel Movement; No Nausea, No Vomiting Genitourinary: No Dysuria, No Hematuria, No Urinary Incontinence Musculoskeletal: No: Pain, Sprain, Strain, Impaired Mobility Physical Exam Vital Signs Date Time Temp Pulse Resp B/P (MAP) Pulse Ox O2 Delivery O2 Flow Rate FiO2 08/29/18 07:30 92 08/29/18 07:18 98.5 72 16 124/75 (91) Nasal Cannula 0.5 Intake and Output 08/29/18 07:00 Intake Total 200 ml Balance 200 ml Intake Oral 200 ml # Voids 1 # Bowel Movements 1 General Appearance: Alert, Awake, No Acute Distress, Afebrile Neuro: No Gross deficits ENT: Moist Mucous Membranes Cardiovascular: Normal Rhythm & Peripheral Pulses, No Edema Respiratory: Clear to Auscultation GI: Soft and Non-Tender, Other (Distended mildly vs obese) Extremities: Soft and Non Tender, Warm, Pulses, Perfused Integumentary: Skin Intact without Lesion / Mass (Right elbow mass, Chronic) Result Diagram: 08/29/1852608/29/18526 Monitor Interpretation: Normal Sinus Rhythm Assessment and Plan Problems: (1) Melena Status: Resolved Assessment & Plan: 08/23/18: Admitted, bowel prep completed, EGD and colonoscopy, possible hemorrhoid banding and/or hemorrhoidectomy this morning. I have explained these procedures to the patient in great detail along with the alternatives, risks, and expected recovery. He indicates his understanding of this discussion and his questions have been answered. He would like to proceed with these procedures. 08/24/18: POD#1 s/p EGD, Colonoscopy with polypectomy and biopsy of ascending colon lesion (large polyp or small cancer), hemorrhoidectomy x2. H/H down this morning, will transfuse 2 Units pRBC; pt agreeable with this. Start fiber and miralax to assist BMs (although he may not have a BM for a couple of days due to bowel prep cleaning him out) and will send him home on bowel regimen including fiber to try and prevent future perianal issues. Recommended that he start Kegel exercises as well due to small amount of prolapsing rectum. Leave johnston in today, remove tomorrow morning. After discharge, will see him back in the office to see how he's healing and will await path results but will need right hemicolectomy due to the lesion in his ascending colon that is unresectable endoscopically due to it's size. Pt seems to understand this discussion and the plan and he seems agreeable with it. 08/25/18: POD#2. Doing well. Will remove johnston this morning and see if he can urinate without problems. Continue bowel regimen. D/C to home if he's urinating without problems. 08/26/18: POD#3. Doing well but still with a lot of perianal and perineal pain, recurrent urinary retention, and difficulty passing flatus and stool. Creatinine is up a little, probably due to poor PO intake. Zosyn may also cause this. Will stop Zosyn and will try ibuprofen (relatively low dose, 200-400mg q6h prn) for improved pain control but will need to follow creatinine and if continues to go up then will need to stop ibuprofen. Will start IV fluids to improve renal perfusion until eating better. He will need to be here until pain control improved, GI function improved, tolerating diet, and possibly urinating without problems but could send him home with catheter in and leg bag if needed. 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 Path results discussed with him. Will discuss definitive resection of large polyp after he's healed from this procedure. 08/27/18: POD#4. Doing well. Will remove johnston again this morning and see if he's able to urinate without problems. Will continue to work on BMs. WBC down to normal. No fevers. Home when able to urinate and defecate without problems. 08/28/18: POD#5. Doing well but still having problems with defecation and now he feels bloated. "I feel like I'm blocked." Will get SBFT, water soluble today. H/H stable. No signs of bleeding. Urinating without problems. 08/29/18: POD#6. Doing well, feels less bloated after quick output following a SBFT, water soluble yesterday. H/H increasing with iron/Vit C. No signs of bleeding. Urinating without problems. Ambulated (2) BRBPR (bright red blood per rectum) Status: Resolved (3) Hemorrhoids Status: Resolved (4) Abdominal bloating Status: Resolved (5) Obstipation Status: Resolved (6) Anemia Status: Chronic Assessment & Plan: 08/29/18: Iron and Vit C (7) Polyp of ascending colon Status: Chronic Assessment & Plan: Too large to remove endoscopically, will need surgical resection in the next few weeks. (8) Postoperative urinary retention Status: Resolved Assessment & Plan: 08/29/18: Johnston out and urinating well (9) Poor sleep pattern Status: Chronic Assessment & Plan: Consider outpt sleep study to r/o Sleep Apnea- refer to PCP (10) Obesity (BMI 30.0-34.9) Status: Chronic Assessment & Plan: Low carb diet; Nutrition plan counseling done x 10 minutes; All questions answered. 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
[2018-08-29] MEDS ORDERED: ASCO-182 PO (10:25)
[2018-08-29] MEDS ORDERED: TRAM-420 PO (10:25)
[2018-08-29] MEDS ORDERED: ACET-2146 PO (10:25)
[2018-08-29] MEDS ORDERED: ALBU8.5H IH (10:25)
[2018-08-29] MEDS ORDERED: LIDO15SO2 ASDIRECTED (10:25)
[2018-08-29] MEDS ORDERED: FERR-53 PO (10:25)
[2018-08-29] MEDS ORDERED: POLY17PO11 PO (10:25)
[2018-08-29] MEDS ORDERED: PSYL3.4P8 PO (10:25)
[2018-08-29] MEDS ORDERED: DOCU-202 PO (10:25)
--- NOTE | 2018-08-29 10:33 | Hospitalist Depart ---
Discharge Summary Reason for Hosp/Final Diag: (1) Melena Status: Resolved Hospital Course & Plan: 08/23/18: Admitted, bowel prep completed, EGD and colonoscopy, possible hemorrhoid banding and/or hemorrhoidectomy this morning. I have explained these procedures to the patient in great detail along with the alternatives, risks, and expected recovery. He indicates his understanding of this discussion and his questions have been answered. He would like to proceed with these procedures. 08/24/18: POD#1 s/p EGD, Colonoscopy with polypectomy and biopsy of ascending colon lesion (large polyp or small cancer), hemorrhoidectomy x2. H/H down this morning, will transfuse 2 Units pRBC; pt agreeable with this. Start fiber and miralax to assist BMs (although he may not have a BM for a couple of days due to bowel prep cleaning him out) and will send him home on bowel regimen including fiber to try and prevent future perianal issues. Recommended that he start Kegel exercises as well due to small amount of prolapsing rectum. Leave johnston in today, remove tomorrow morning. After discharge, will see him back in the office to see how he's healing and will await path results but will need right hemicolectomy due to the lesion in his ascending colon that is unresectable endoscopically due to it's size. Pt seems to understand this discussion and the plan and he seems agreeable with it. 08/25/18: POD#2. Doing well. Will remove johnston this morning and see if he can urinate without problems. Continue bowel regimen. D/C to home if he's urinating without problems. 08/26/18: POD#3. Doing well but still with a lot of perianal and perineal pain, recurrent urinary retention, and difficulty passing flatus and stool. Creatinine is up a little, probably due to poor PO intake. Zosyn may also cause this. Will stop Zosyn and will try ibuprofen (relatively low dose, 200-400mg q6h prn) for improved pain control but will need to follow creatinine and if continues to go up then will need to stop ibuprofen. Will start IV fluids to improve renal perfusion until eating better. He will need to be here until pain control improved, GI function improved, tolerating diet, and possibly urinating without problems but could send him home with catheter in and leg bag if needed. 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 Path results discussed with him. Will discuss definitive resection of large polyp after he's healed from this procedure. 08/27/18: POD#4. Doing well. Will remove johnston again this morning and see if he's able to urinate without problems. Will continue to work on BMs. WBC down to normal. No fevers. Home when able to urinate and defecate without problems. 08/28/18: POD#5. Doing well but still having problems with defecation and now he feels bloated. "I feel like I'm blocked." Will get SBFT, water soluble today. H/H stable. No signs of bleeding. Urinating without problems. 08/29/18: POD#6. Doing well, feels less bloated after quick output following a SBFT, water soluble yesterday. H/H increasing with iron/Vit C. No signs of bleeding. Urinating without problems. Ambulated (2) BRBPR (bright red blood per rectum) Status: Resolved (3) Hemorrhoids Status: Resolved (4) Abdominal bloating Status: Resolved (5) Obstipation Status: Resolved (6) Anemia Status: Chronic Hospital Course & Plan: 08/29/18: Iron and Vit C (7) Polyp of ascending colon Status: Chronic Hospital Course & Plan: Too large to remove endoscopically, will need surgical resection in the next few weeks. (8) Postoperative urinary retention Status: Resolved Hospital Course & Plan: 08/29/18: Johnston out and urinating well (9) Poor sleep pattern Status: Chronic Hospital Course & Plan: Consider outpt sleep study to r/o Sleep Apnea- refer to PCP (10) Obesity (BMI 30.0-34.9) Status: Chronic Hospital Course & Plan: Low carb diet; Nutrition plan counseling done x 10 minutes; All questions answered. also present Departure Weight (Pounds): 242 Weight (Ounces): 5.0 Result Diagram: 08/29/1852608/29/18526 Condition: Improved Discharge: Home Discharge Code Status: Full Code Time Spent: > 30 min Discharge Instructions Home Meds Active Scripts Lidocaine HCl VISCOUS 2% (Lidocaine Viscous) 2 % Solution, 2 ML ASDIRECTED 2-4XD PRN for PAIN for 10 Days, #4 TUBE 3 Refills Prov:ENRIQUE GONZALEZ MD 08/29/18 Acetaminophen 500 Mg Tab (ACETAMINOPHEN EXTRA STRENGTH) 500 Mg Tablet, 1000 MG PO TID for 14 Days, #90 TAB Prov:ENRIQUE GONZALEZ MD 08/29/18 Tramadol Hcl (TRAMADOL HCL) 50 Mg Tablet, 50 MG PO Q4H PRN for PAIN for 10 Days, #60 TAB 0 Refills Prov:ENRIQUE GONZALEZ MD 08/29/18 Psyllium Husk (with Sugar) (Konsyl Psyllium Fiber Packet) 3.4 Gm Powd.pack, 1 PACKET PO QDAY for 30 Days, #30 BAG Prov:ENRIQUE GONZALEZ MD 08/29/18 Polyethylene Glycol 3350 (POLYETHYLENE GLYCOL 3350) 17 Gm Powd.pack, 17 GM PO BID for 14 Days, #30 PACK 3 Refills Prov:ENRIQUE GONZALEZ MD 08/29/18 Ferrous Sulfate (FERROUS SULFATE) 325 Mg Tablet, 325 MG PO BIDBS for 60 Days, #120 TAB Prov:ENRIQUE GONZALEZ MD 08/29/18 Docusate Sodium (DOCUSATE SODIUM) 100 Mg Capsule, 100 MG PO BID for 30 Days, #60 CAPSULE Prov:NERIQUE GONZALEZ MD 08/29/18 Ascorbic Acid (VITAMIN C) 500 Mg Tablet, 500 MG PO BIDBS for 60 Days, #120 TAB Prov:ENRIQUE GONZALEZ MD 08/29/18 Albuterol Sulfate 90 Mcg/Act (PROAIR HFA 90 MCG/ACT) 8.5 Gm Hfa.aer.ad, 1-2 PUFF IH 3-4XD for wheezing for 30 Days, #2 INHALER 6 Refills Prov:ENRIQUE GONZALEZ MD 08/29/18 Reported Medications Albuterol Sulfate 0.083% (ALBUTEROL SULFATE 0.083%) 2.5 Mg/3 Ml Vial.neb, 2.5 MG INH, INH 04/25/18 Naproxen Sodium (ALEVE) 220 Mg Tablet, 220 MG PO TID, TAB 04/25/18 Discontinued Scripts Promethazine Hcl (PROMETHAZINE HCL) 25 Mg Tablet, 12.5 MG PO Q8H for Nausea for 7 Days, #10 TAB Prov:PATRICIA BEACH DO 04/26/18 Prednisone (PREDNISONE) 20 Mg Tablet, 20 MG PO QDAY for 3 Days, #3 TAB Prov:PATRICIA BEACH DO 04/26/18 Oseltamivir Phosphate (TAMIFLU) 75 Mg Cap, 75 MG PO Q12H@1100,2300 for 3 Days, #6 CAP Prov:PATRICIA BEACH DO 04/26/18 Aspirin (ASPIRIN EC) 81 Mg Tablet.dr, 81 MG PO QDAY for 30 Days, TAB Prov:PATRICIA BEACH DO 04/26/18 Follow up Referrals: General Surgery - In Two Weeks with JENNIFER JARVIS MD Pulmonology Evaluate for Sleep Apnea Diet: High Fiber (Low Carbohydrate ) Activity: As Tolerated Special Instructions: Ambulate every 4 hours while not sleeping F/U with PCP for sleep apnea evaluation Return to Clinic to see Dr Jarvis as scheduled within two weeks Copies to: JENNIFER JARVIS MD ; Venous Thromboembolism Antithrombotics Is Pt On Any Antithrombotics?: No Problem Qualifiers (1) Hemorrhoids: Hemorrhoid type: third degree Qualified Codes: K64.2 - Third degree hemorrhoids (2) Anemia: Anemia type: iron deficiency Iron deficiency anemia type: chronic blood loss Qualified 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
== END 2018-08-29 11:15 | disposition home or self-care (01) | DRG 394 ==
LOC: ER 19:14 → MED 22:46 → INTOOBSV 22:46 → OBSVTOIN 08-24
PROVIDERS: ADMIT Surgery; ATTEND Surgery
PROC: 0DBK8ZX Excision of Ascending Colon, Via Natural or Artificial Opening Endoscopic, Diagnostic (ICD-10-PCS; 2018-08-23)
PROC: 0DJ08ZZ Inspection of Upper Intestinal Tract, Via Natural or Artificial Opening Endoscopic (ICD-10-PCS; principal; 2018-08-23 11:30)
PROC: 0DBQ8ZX Excision of Anus, Via Natural or Artificial Opening Endoscopic, Diagnostic (ICD-10-PCS; 2018-08-23 11:30)
PROC: 0DBL8ZX Excision of Transverse Colon, Via Natural or Artificial Opening Endoscopic, Diagnostic (ICD-10-PCS; 2018-08-23 11:30)
DX: K62.3 Rectal prolapse (principal); K92.1 Melena; D12.2 Benign neoplasm of ascending colon; D12.3 Benign neoplasm of transverse colon; K62.0 Anal polyp; K64.8 Other hemorrhoids; K63.89 Other specified diseases of intestine; K59.09 Other constipation; D50.0 Iron deficiency anemia secondary to blood loss (chronic); E66.9 Obesity, unspecified; R33.9 Retention of urine, unspecified; Z88.5 Allergy status to narcotic agent; Z87.891 Personal history of nicotine dependence; Z86.73 Personal history of transient ischemic attack (TIA), and cerebral infarction without residual deficits; Z68.33 Body mass index [BMI] 33.0-33.9, adult
CPT/HCPCS: 36415; 74177; 74250; 81001; 82040; 82150; 82247; 82274; 82310; 82374; 82378; 82435; 82565; 82947; 83690; 84075; 84132; 84155; 84295; 84450; 84460; 84520; 85014; 85018; 85025; 85610; 85730; 86677; 86850; 86900; 86901; 86920; 88305; 96361; 96374; 99285; C9113; G0378; J1100; J2001; J2405; J2543; J2704; J2795; J3010; J3480; J7030; P9016; Q0169; Q9967